=== PATIENT | female | born 1970 | race Caucasian/White ===

== ENCOUNTER 2022-08-16 11:45 | Outpatient (OUT) | payer OTHER, SELFPAY ==
--- NOTE | 2022-08-16 | ECG_ITS ---
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
--- NOTE | 2022-08-16 12:19 | CA_ITS ---
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1970 Requested By: [id number] Order Number: [id number] Reading MD: JAYDEN HUGHES Interpretive Statements Predominant rhythm is sinus with average rate of 92 bpm Tachycardia - max rate of of 159 bpm - 1 episode of PSVT w/ duration of 5 beats w/ rate of 232 bpm - longest episode of 1hr 45min 42sec with rates of 125-159 bpm Bradycardia - min rate of 48 bpm - longest episode of 18sec with rates of 51 bpm Ventricular ectopy - 11 total (<1%) - 11 PVC Patient triggered events: 28 - associated with symptoms of chest pain, palpitations, SOB - associated with rates of 112, 105 and the remaining NSR Impression: Predominant rhythm is sinus with average rate of 92 bpm Fastest rate of 159 bpm and slowest rate of 48 bpm 11 PVC 1 episode of PSVT w/ rate of 232 bpm with duration of 5 beats No blocks or pauses Electronically Signed On 10-03-2022 21:14:07 EDT by JAYDEN HUGHES
== END 2022-08-16 11:46 ==
LOC: CARD 11:49
DX: R00.2 Palpitations (principal)
CPT/HCPCS: 93005; 93242

== ENCOUNTER 2022-11-09 08:11 | Outpatient (OUT) | payer OTHER, SELFPAY ==
--- NOTE | 2022-11-09 | PCN_ITS ---
CARDIAC STRESS TEST Requesting Physician:? Darinel New NP Procedure Date:? 11/09/2022 PERFORMING PROVIDER:? Jennifer Park M.D. INDICATION:? Abnormal EKG. STRESS TEST PROTOCOL:? Treadmill myocardial perfusion scan. Exercise protocol:? Radames Resting heart rate:? 75 beats per minute. Maximum heart rate:? 150 beats per minute. Peak maximal heart rate percentage:? < > Resting blood pressure: 124/82 Maximum blood pressure:? 166/90 Exercise time:? 9 minutes 0 seconds Stage reached:? 3 METS:? 10.10 Reason for termination:? Achieved target heart rate. Heart rate recovery:? Normal. Chronotropic response index:? Normal. Functional capacity:? Good Blood pressure response:? Normal. ST changes:? Patient has 1-1.[address] depression in inferolateral leads. Chamorro treadmill score:? +1.5 CONCLUSIONS:? 1.? This is a positive treadmill stress test with 1-1.[address] depression in inferolateral leads. 2.? Chamorro treadmill score is +1.5, indicating moderate risk of angiographically significant coronary artery disease. 3.? Please refer to separately performed and interpreted myocardial perfusion imaging. 4.? Clinical correlation is recommended. [facility]
--- NOTE | 2022-11-09 | NM_ITS ---
Patient: DANN HANNA Exam Date: 11/09/2022 : 1970 Gender:F Ordering : EMILY LAUREN Admission #: [id number] Family : Non-Staff Physician Order #: [id number] CLICK HERE TO VIEW EXAM RADIOLOGY REPORT PROCEDURE: NM SEDA PERF SPECT REST STR COMPARISON: None. INDICATIONS: ABNORMAL EKG TECHNIQUE: Exam Description: Stress/Rest one day protocol gated SPECT Rest Imagin.2 mCi Tc-99m Cardiolite IV on 11/09/2022 Stress Imaging 31.0 mCi Tc-99m Cardiolite IV on 11/09/2022 Exercise Protocol: Radames Heart Rate (bpm): Rest: 75 Max: 150 PMHR: 89 Blood Pressure: Rest: 124/82 Max: 166/90 Exercise Time: Minutes: 9 Seconds: 00 Stage Reached: Stage: 3 Mets 10.10 Symptoms: Rest and peak stress ECG findings were pending and the exercise portion of the study was pending per attending physician Dr. JACOB wilson topending [facility] report. For more details please see separate cardiac stress test report. FINDINGS: QUALITY OF STUDY: Excellent. PERFUSION DEFECT: None. LOCATION: N/A SIZE: N/A. SEVERITY: N/A. TYPE: N/A. WALL MOTION: Normal. LV SIZE: Normal. 68 mL. TID / TCD: None; 1.0 LVEF: Normal. Calculated EF 64%. SUMMARY: Myocardial perfusion imaging study is NORMAL. CONCLUSION: 1. Normal nuclear medicine myocardial perfusion scan. Dictated by: Lino Farley M.D. on 11/09/2022 at 14:48 Approved by: Lino Farley M.D. on 11/09/2022 at 14:50
--- NOTE | 2022-11-09 09:15 | CA_ITS ---
Patient: DANN HANNA Exam Date: 11/09/2022 : 1970 Gender:F Ordering : EMILY LAUREN Admission #: [id number] Family : Order #: [id number] CLICK HERE TO VIEW EXAM ECHOCARDIOGRAM REPORT PROCEDURE: CA ECHO DOPPLER COMPLETE INDICATIONS: Abnormal EKG, hypertension, smoker COMPARISON: None. DESCRIPTION: COMPLETE ECHOCARDIOGRAM Real-time transthoracic echocardiography with 2D, M-mode, spectral and color flow Doppler performed. QUALITY: Technical quality was good. LEFT VENTRICLE: Normal chamber size. Borderline left ventricular hypertrophy. Normal systolic function. LV EF: Normal left ventricular ejection fraction, (>55%). DIASTOLIC: Normal diastolic function. ATRIAL SEPTUM: Visually appears intact. LEFT ATRIUM: Normal chamber size. RIGHT ATRIUM: Normal chamber size. RIGHT VENTRICLE: Normal chamber size. Normal right ventricular systolic function. TRICUSPID VALVE: Normal mobility and thickness. No stenosis with no regurgitation. Unable to assess right-sided pressures due to lack of measurable tricuspid regurgitation. MITRAL VALVE: Normal mobility and thickness. No evidence of mitral valve stenosis. There is no mitral annular calcification. Trivial mitral regurgitation. AORTIC VALVE: Normal trileaflet appearance. No visible sclerosis. Normal leaflet mobility. No evidence of aortic valve stenosis. No aortic regurgitation. AORTIC ROOT: Normal diameter and appearance. PULMONIC VALVE: Normal thickness and mobility. No stenosis. Trivial regurgitation. PERICARDIUM: No evidence of pericardial effusion. IVC: Collapses with inspirations. PLEURA: CONCLUSION: 1. Normal ventricular size and systolic function. LVEF is 60%. 2. Normal diastolic function. 3. No significant valvular dysfunction. 4. Unable to assess right-sided pressures due to lack of measurable tricuspid regurgitation. 5. No pericardial effusion. Adult Echocardiography Procedure Report Left Ventricle LVEDD (3.7 - 5.6 cm): 4.54 cm LVESD (2.2 - 4.0 cm): 2.92 cm LVIVS thickness (0.6 - 1.2 cm): 0.96 cm LVPW thickness (0.5 - 1.0 cm): 1.08 cm e': 0.12 m/s E - e': 3.52 LVOT Max Gradient: 2.20 mm[Hg] LVOT Area (cm2): 0.74 m/s Peak Velocity (LVOT): 0.74 m/s Mean Velocity (LVOT): 0.57 m/s LVOT Diameter 2.03 cm Left Atrium LA Volume Index (2D A2C): 23.78 ml/m2 Left Atrium Systolic Dimension: 3.26 cm Mitral Valve MV E to A Ratio: 1.06 Mitral Valve A-Wave Peak Velocity: 0.41 m/s Mitral Valve E-Wave Peak Velocity: 0.43 m/s Right Ventricle Aorta AO Root Diam: 3.19 cm Ascending Ao Diam: 2.77 cm Aortic Valve AoV Area (Peak Vignesh): 2.23 cm2, 2.23 cm2 Peak Velocity(Antegrade Flow): 1.08 m/s Peak Gradient(Antegrade Flow): 4.65 mm[Hg] Tricuspid Valve Pulmonic Valve Peak Velocity: 0.90 m/s Peak Gradient: 3.51 mm[Hg], 3.04 mm[Hg] Right Atrium Right Atrium Systolic Pressure: 34.46 ml, 34.46 ml Dictated by: Jarod Mortensen M.D. on 11/09/2022 at 17:58 Approved by: Jarod Mortensen M.D. on 11/09/2022 at 18:00
== END 2022-11-09 08:12 | disposition home or self-care (01) ==
LOC: NM 08:12
PROVIDERS: Visit Provider Nurse Practitioner
DX: R94.31 Abnormal electrocardiogram [ECG] [EKG] (principal); I47.1 Supraventricular tachycardia
CPT/HCPCS: 78452; 93017; 93306; A9500

== ENCOUNTER 2022-12-05 11:37 | Outpatient (OUT) | payer OTHER, SELFPAY ==
[2022-12-05 11:55] LABS: Basophils Percent Auto 0.3 % (0.2-2.0); Eosinophils Absolute Auto 0.1 10^3/uL (0.0-0.7); Eosinophils Percent Auto 0.4 % (0.9-7.0); Hematocrit 42.6 % (36.0-48.0); Hemoglobin 14.5 g/dL (12.0-16.0); Immature Granulocytes Abs Auto 0.03 10^3/uL (0.00-0.03); Immature Granulocytes Pct Auto 0.3 % (0.0-0.5); Lymphocytes Absolute Auto 3.1 10^3/uL (1.2-3.8); Lymphocytes Percent Auto 26.8 % (20.5-60.0); Mean Platelet Volume 9.3 fL (9.5-13.5); Monocytes Absolute Auto 0.6 10^3/uL (0.3-0.8); Monocytes Percent Auto 5.2 % (1.7-12.0); Neutrophils Absolute Auto 7.8 10^3/uL (1.4-6.5); Platelet Count 292 10^3/uL (150-450); Red Blood Count 4.68 10^6/uL (4.20-5.40); Red Cell Distribution Width 12.4 % (11.0-15.0); White Blood Count 11.6 10^3/uL (4.0-11.0)
[2022-12-05 12:04] LABS: Anion Gap 11.1; BUN Creatinine Ratio 18.4; Calcium 9.1 mg/dL (8.5-10.1); Carbon Dioxide 26.6 mmol/L (21.0-32.0); Chloride 103 mmol/L (98-107); Estimated GFR (African America >60 (>=60); Estimated GFR (Non-African Ame >60 (>=60); Glucose 89 mg/dL (74-106); Potassium 4.7 mmol/L (3.5-5.1); Sodium 136 mmol/L (136-145)
== END 2022-12-05 11:38 | disposition home or self-care (01) ==
LOC: LAB 11:38
PROVIDERS: Visit Provider Nurse Practitioner
DX: R94.39 Abnormal result of other cardiovascular function study (principal)
CPT/HCPCS: 36415; 80048; 85025

== ENCOUNTER 2023-05-22 09:21 | Outpatient (OUT) | payer OTHER, SELFPAY ==
--- NOTE | 2023-05-22 09:23 | MM_ITS ---
Patient Name: DANN HANNA MR#: [id number] : 1970 Exam Date: 05/22/2023 Ordering Doctor: Rola Woodward RADIOLOGY REPORT PROCEDURE: MM TOMOSYNTHESIS SCREENING BI COMPARISON: MG STEREO LOC GUIDE BREAST RT, 08/03/2010. MAMMO RT DX, 07/17/2010. MAMMO RT DX, 07/17/2010. MAMMO RT DX, 06/30/2010. INDICATIONS: screening Calculator Name NCI Breast Cancer Risk Assessment Tool 5 Year Breast Cancer Risk 1.30% Lifetime Breast Cancer Risk 10.10% Personal Breast Cancer No Personal Ovarian Cancer No Treatments None Family Cancers None LOCATION: [facility] BREAST COMPOSITION: Scattered areas fibroglandular density. FINDINGS: DIAGNOSTIC CATEGORY 2--BENIGN FINDING: RIGHT BREAST: No significant suspicious finding. Postsurgical scarring posterior upper-outer quadrant. LEFT BREAST: No significant suspicious finding. Scattered benign-appearing lymph nodes are present. RECOMMENDATIONS: ROUTINE MAMMOGRAM AND CLINICAL EVALUATION IN 12 MONTHS. PLEASE NOTE: A NORMAL MAMMOGRAM DOES NOT EXCLUDE THE POSSIBILITY OF BREAST CANCER. A CLINICALLY SUSPICIOUS PALPABLE LUMP SHOULD BE BIOPSIED. Dictated by: Lino Farley M.D. on 05/24/2023 at 08:26 Approved by: Lino Farley M.D. on 05/24/2023 at 08:33
== END 2023-05-22 09:22 | disposition home or self-care (01) ==
LOC: MAMMO 09:21
PROVIDERS: Visit Provider Nurse Practitioner
DX: Z12.31 Encounter for screening mammogram for malignant neoplasm of breast (principal)
CPT/HCPCS: 77063; 77067

== ENCOUNTER 2023-08-27 07:56 | Outpatient (OUT) | payer OTHER, SELFPAY ==
--- NOTE | 2023-08-27 07:59 | US_ITS ---
The [address] [address] Patient Name: DANN HANNA MRN: [id number] date: 1970 Sex: F Assigned Patient Location: US Current Patient Location: Accession/Order Number: [id number] Exam Date: 08/27/2023 08:12 Report Date: 08/27/2023 09:29 At the request of: KELECHI GARNER Procedure: US abdomen complete EXAMINATION: US abdomen complete HISTORY: Upper abdominal pain R10.10 COMPARISON: No relevant comparison available. FINDINGS: The liver is normal in size, contour and echotexture is 3 14 cm in length. Multiple areas of anechoic echogenicity, simple cyst. Hepatopedal flow in the main portal vein with a velocity of 31 cm/s. The gallbladder is normal in size. The wall measures 2.5 mm. Negative sonographic Zavala sign. Multiple echogenic foci, cholelithiasis. The common bile duct measures 2.6 mm, normal The visualized pancreas is normal The right kidney is normal measuring 9.9 x 4.9 x 4.8 cm Left kidney is normal measuring 9.8 x 4.6 x 4.3 cm The visualized aorta and IVC are normal The spleen is normal US/US abdomen complete IMPRESSION: Simple liver cysts Cholelithiasis without evidence of acute cholecystitis Electronically authenticated by: GABE GARNER Date: 08/27/2023 09:29
== END 2023-08-27 07:57 | disposition home or self-care (01) ==
LOC: US 07:57
PROVIDERS: Visit Provider Nurse Practitioner
DX: R10.10 Upper abdominal pain, unspecified (principal); K76.89 Other specified diseases of liver; K80.20 Calculus of gallbladder without cholecystitis without obstruction
CPT/HCPCS: 76700

== ENCOUNTER 2024-12-04 01:13 | Emergency (ER) | payer OTHER, SELFPAY ==
[2024-12-04] VITALS (48 sets, daily range): BP systolic 112–134; BP diastolic 68–87; PULSE 75–95; TEMP 36.9; O2SAT 94–99; BMI 25.4
--- OUTSIDE RECORDS SUMMARY | 2024-12-04 01:25 | XMS_ITS | CCD ---
Author Organization [facility] Care Team Providers Care Public Space Attendant Name Role Phone KARON GARRETT Unavailable Unavailable Arian Garcia Unavailable FLOYD PRITCHETT Attending Unavailable EMILY LAUREN Attending Unavailable ELTAALVINA, EHAB Admitting Unavailable ANA BOSSAB Attending Unavailable EMILY LAUREN Referring Unavailable ELTAHAWY, EHAB Referring Unavailable KELECHI GARNER Primary Care Physician [phone] KELECHI GARNER Primary Care Unavailable Lennox Aparicio Attending Unavaila ble Allergies Allergy Classification Reported Allergen(s) Allergy Type Date of Onset Reaction(s) Facility (5 sources) Penicillins; Translations: [PENICILLINS] Propensity to adverse reactions to drug (disorder) 06-27-19 05 Unknown (qualifier value) [facility] Repository (3 sources) Sulfonamides (Antibiotic); Translations: [SULFA (SULFONAMIDE ANTIBIOTICS)] Propensity to adverse reactions to drug (disorder) 06-27-19 05 [facility] Repository (2 sources) Penicillins (Antibiotic) Propensity to adverse reactions Unknown [facility] Other (2 sources) Sulfamethoxazole Drug Allergy Unknown [facility] Other (2 sources) Sulfonamides (Antibiotic); Translations: [sulfa drugs] Drug allergy Unknown (qualifier value) [facility] Medications Completed/Discontinued Medications Medication Drug Class(es) Dates Sig (Normalized) Sig (Original) busPIRone hydrochloride 10 mg oral tablet (1 source) Start: 09-25-2023 busPIRone 10 mg Tab 60 EA, 0 Refill(s), take 1 tablet by mouth twice a day, Refills(s) 0 Start Date: 09/25/23 Status: Ordered colestipol hydrochloride 1000 mg oral tablet (3 sources) Bile Acid Sequestrant Start: 09-25-2023 colestipol 1 g Tab 180 EA, 0 Refill(s), take 3 tablets orally twice a day, Refills(s) 0 Start Date: 09/25/23 Status: Ordered Start: 09-29-2019 take 3 tablets by mo [facility] every twelve hours Colestipol HCl 1 GM 3 tablets Orally bid for 30 day(s) Sep, Active Start: 09-29-2019 take 3 tablets by mo ut every twelve hours Colestipol HCl 1 GM 3 tablets Orally bid for 30 day(s) Sep, Active ibuprofen 800 mg oral tablet (1 source) Nonsteroidal Anti-inflammatory Drug Start: 09-25-2023 ibuprofen 800 mg Tab 90 EA, 0 Refill(s), take 1 tablet orally every 8 hours with food NEEDED FOR PAIN, Refills(s) 0 Start Date: 09/25/23 Status: Ordered 24 hr nicotine 0.875 mg/hr transdermal system (1 source) Cholinergic Nicotinic Agonist Start: 09-25-2023 nicotine 21 mg/24 hr Transderm ER Film Refill(s) 0, 28 EA, 0 Refill(s), apply 1 patch to CLEAN, DRY, AND INTACT SKIN once daily REMOVE ev... (REFER TO PRESCRIPTION NOTES). Start Date: 09/25/23 Status: Ordered sucralfate 1000 mg oral tablet (3 sources) Aluminum Complex Start: 09-25-2023 take 10 mL by mouth four times daily sucralfate 1 g Tab 56 EA, 0 Refill(s), TAKE 1 TABLET BY MOUTH FOUR TIMES DAILY EVERY DAY ON AN EMPTY STOMACH 1 HOUR BEFORE MEALS AND AT BEDTIME MIX ONE TABLET WITH 10ML OF WATER, Refills(s) 0 Start Date: 09/25/23 Status: Ordered Start: 05-15-2021 take 1 tablet by caterina th every twelve hours Sucralfate 1 GM 1 TABLET Orally Twice a day for 30 day(s) May, Active Start: 05-15-2021 take 1 tablet by caterina th every twelve hours Sucralfate 1 GM 1 TABLET Orally Twice a day for 30 day(s) May, Active Problems Active Problems Problem Classification Problem Date Documented Date Episodic/Chronic Abdominal pain (2 sources) Epigastric pain; Translations: [Epigastric pain] Onset: 4 Episodic Anxiety disorders (1 source) Anxiety 09-25-2023 Chronic Cardiac dysrhythmias (2 sources) Supraventricular tachycardia; Translations: [Supraventricular tachycardia] Onset: 3 Chronic Diseases of mouth; excluding dental (2 sources) Sialoadenitis; Translations: [Sialoadenitis, unspecified] Episodic Esophageal disorders (3 sources) Gastroesophageal reflux disease; Translations: [Gastro-esophageal reflux disease without esophagitis] 09-25-2023 Chronic Mood disorders (3 sources) Bipolar disorder; Translations: [Bipolar disorder, unspecified] Onset: 4 Chronic Noninfectious gastroenteritis (2 sources) Noninfectious enteritis; Translations: [Noninfective gastroenteritis and colitis, unspecified] Onset: 4 Episodic Nonmalignant breast conditions (1 source) Mastodynia; Translations: [Mastodynia] Onset: 8 Episodic Other acquired deformities (2 sources) Mallet finger; Translations: [Mallet finger of right finger(s)] Episodic Other screening for suspected conditions (not mental disorders or infectious disease) (4 sources) Abnormal result of other cardiovascular function study; Translations: [Abnormal electrocardiogram [ECG] [EKG]] Onset: 3 Episodic Other upper respiratory infections (2 sources) Inflammatory disorder of upper respiratory tract; Translations: [Chronic sinusitis, unspecified] Chronic Regional enteritis and ulcerative colitis (4 sources) Crohn's disease; Translations: [Crohn's disease, unspecified, with unspecified complications] Onset: 4 Chronic Substance-related disorders (1 source) Smoker 09-25-2023 Chronic Comment on above: Added secondary to d ocumentation in Social History. Unclassified (1 source) Supraventricular tachycardia, unspecified; Translations: [Supraventricular tachycardia, unspecified] Onset: 3 Past or Other Problems Problem Classification Problem Date Documented Da te Episodic/Chronic Other gastrointestinal disorders (1 source) Diarrhea Onset: 5 09-25-2023 Episodic Unclassified (1 source) Supraventricular tachycardia, unspecified; Translations: [Supraventricular tachycardia, unspecified] Onset: 3 Results Test Name Value Interpretation Reference Range Facility Ambulatory Visit Summaryon 0 09-30-2023 Ambulatory Visit Summary Ambulatory Visit Summary DENISE REID :1970 Visit Date:09/30/2023 Ambulatory Visit Instructions Your Diagnosis Epigastric pain Crohn's disease Colitis Bipolar disorder Your Care Team Attending Physician - Markus SEWELL, Lennox Sarah Primary Care Physician - KELECHI GARNER This Is Your Medications List Contact prescribing physician if questions or concerns busPIRone (busPIRone 10 mg Tab) colestipol (colestipol 1 g Tab) ibuprofen (ibuprofen 800 mg Tab) nicotine (nicotine 21 mg/24 hr Transderm ER Film) sucralfate (sucralfate 1 g Tab) Procedures Performed Colonoscopy, EGD - esophagogastroduodenoscop y. Discharge Vitals Heart Rate (Peripheral) 63 Respiratory Rate 16 Blood Pressure 113/75 Height 176 cm Height 69 in Weight 72.5 kg Weight 159.5 lb BMI 23.41 Medications What When Instructions Unchanged busPIRone (busPIRone 10 mg Tab) 60 EA, 0 Refill(s), take 1 tablet by mouth twice a day Contact prescribing physician if questions or concerns Unchanged colestipol (colestipol 1 g Tab) 180 EA, 0 Refill(s), take 3 tablets orally twice a day Contact prescribing physician if questions or concerns Unchanged ibuprofen (ibuprofen 800 mg Tab) 90 EA, 0 Refill(s), take 1 tablet orally every 8 hours with food NEEDED FOR PAIN Contact prescribing physician if questions or concerns Unchanged nicotine (nicotine 21 mg/ 24 hr Transderm ER Film) 28 EA, 0 Refill(s), apply 1 patch to CLEAN, DRY, AND INTACT SKIN once daily REMOVE ev... (REFER TO PRESCRIPTION NOTES). Contact prescribing physician if questions or concerns Unchanged sucralfate (sucralfate 1 g Tab) 56 EA, 0 Refill(s), TAKE 1 TABLET BY MOUTH FOUR TIMES DAILY EVERY DAY ON AN EMPTY STOMACH 1 HOUR BEFORE MEALS AND AT BEDTIME MIX ONE TABLET WITH 10ML OF WATER Contact prescribing physician if questions or concerns Allergies penicillins (Unknown) sulfa drugs (Unknown) Problems Ongoing - Any problem that you are currently receiving treatment for. Anxiety Bipolar disorder Chronic GERD Colitis Crohn's disease Depression Diarrhea Epigastric pain Smoker Patient Survey You may receive a survey via text or e-mail asking about your office visit. Please share your experience with us by completing your survey. We appreciate your feedback and thank you for choosing us for your care. Aretha [facility] Gastroenterology Office/Clin ic Noteon 09-30-2023 Gastroenterology Office/Clinic Note Gastroenterology Office/Clinic Note Chief Complaint Abdominal pain and pressure when eating. Shooting pain RLQ. HPI Staff Patient is a 53 year old female who was referred by [facility] for epigastric pain, IBS and hx of Crohn's disease. Pain started 08/2023, sharp/shooting, came in waves, mainly when up and moving and is worse after meals. PCP advised to take Omeprazole and Carafate but Omeprazole made sx worse. Hx IBS/Crohn's - takes Colestipol and Carafate for this. Hx hemicolectomy & appendectomy Initial consult 12/06/2008 w/Dr. Carbajal: In 2005 patient was diagnosed with Crohn's disease of the terminal ileum and at that time she underwent a right hemicolectomy. This was done in [facility]. At that time she was referred to the [facility] and she has been following with them since. She was tried on 6-MP and apparently she developed a side effect. She refused to take Remicade because of the 6-MP side effects and was treated with Questran for her diarrhea. PLAN: She was asked to stop the Questran and start samples of Pentasa 4g daily Capsule endoscopy 03/11/2009: First gastric image was at 24 seconds. First duodenal image was at 8 minutes and 42 seconds. First cecal image was at one hour 10 minutes and 34 seconds. At 17 minutes and 5 seconds there was an abnormal-looking area that was questionable for a venous dillard. At one hour 9 minutes and 49 seconds there was a suspicious area for ulcer but this is most likely an artifact. There was rapid gastric emptying as well as rapid transit through the small intestine. SUMMARY & RECOMMENDATIONS: There was rapid gastric emptying as well as rapid transit through the small intestine. Otherwise no obvious evidence of small intestinal Crohn's disease. Patient will follow in the office and that will give her a trial of Bentyl. EGD/Colon 01/04/2017 w/Dr. 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 Stomach, antrum, biopsy: -Reactive gastropathy B. Esophagus, biopsy: - Squamous mucosa with focal parakeratosis. - No eosinophilia or intestinal metaplasia identified. C. Colon, near anastomosis, biopsy: - Colonic mucosa with no significant pathologic findings. D. Neoterminal ileum, biopsy: - Chronic and mild active ileitis. - No granuloma or dysplasia identified. E. Rectum, biopsy: - Colonic mucosa with no significant pathologic findings. US abd 08/27/23 @ [facility]: IMPRESSION: Simple liver cysts Cholelithiasis without evidence of acute cholecystitis. Labs 12/05/22 @ [place]: WBC 11.6 (H) Mean Platelet Volume 9.3 (L) Labs 06/15/21 @ [facility]: Sed rate: 20 CRP: 0.5 TSH 1.55 Celiac panel: negative History of Present Illness Doing well since the surgery, on colestipol which controls her bowel movements, no extraluminal manifestations Review of Systems PHQ Score Initial Depression Screen Score: 0 SCORE Physical Exam Vitals & Measurements HR: 63(Peripheral) RR: 16 BP: 113/75 HT: 69 in HT: 176 cm WT: 72.5 kg WT: 159.5 lb BMI: 23.41 Assessment/Plan 1. Epigastric pain (R10.13: Epigastric pain) None currently 2. Crohn's disease (K50.90: Crohn's disease, unspecified, without complications) Diagnosed 2006status post right hemicolectomy, doing well on colestipol, she was on 6-mercaptopurine for short time at [facility] Not sure when she stopped it Overall she is in a clinical remission, we discussed restaging her disease with imaging and EGD and colonoscopy, she would like to push that for now in few months Continue colestipol 3 g twice a day before meals 3. Colitis (K52.9: Noninfective gastroenteritis and colitis, unspecified) 4. Bipolar disorder (F31.9: Bipolar disorder, unspecified) Follow-up No qualifying data available Problem List/Past Medical History Ongoing Anxiety Bipolar disorder Chronic GERD Colitis Crohn's disease Depression Diarrhea Epigastric pain Smoker Historical No qualifying data Procedure/Surgical History Colonoscopy, EGD - esophagogastroduodenoscop y. Medications busPIRone 10 mg Tab colestipol 1 g Tab ibuprofen 800 mg Tab nicotine 21 mg/24 hr Transderm ER Film sucralfate 1 g Tab Allergies penicillins (Unknown) sulfa drugs (Unknown) Social History Alcohol Current, 3-5 times per week, 09/25/2023 Tobacco 10 or more cigarettes (1/2 pack or more)/day in last 30 days Tobacco Use:. Never Smokeless Tobacco Use:. Cigarettes, Ready to change: Yes. Yes, 09/30/2023 Family History Alcoholism: Sister and Brother.Negative: Father. Diabetes mellitus: Negative: Father. Heart disease: Negative: Father. Skin cancer: Mother. Stroke: Father. Normal [facility] Comment on above: Result Comment: Elec tronically Signed By: Markus SEWELL, Lennox Sarah\.br\Date and Time Signed: 09/30/23 11:01 EDT Office Visiton 12-25-2022 Follow-up visit [id number] Denise Reid 1970 F Date Provider Department Center 12/25/2022 FLOYD RYDER TAMIKA Meeks [facility] Family History Problem Relation Age of Onset Heart attack Father Stroke Father Family Status - Relation Status Age at Father Level of Service:45532 [place] OFFICE/OUTPATIENT NEW MODERATE MDM 45-59 MINUTES Normal [facility] Vidya 12-10-2022 ANES ----- ----- Attestation signed by Lowell Boss MD at 12/10/2022 10:02 AM Lowell Boss MD, MPH, FACC, [facility], [facility] Interventional Cardiology Pager Email: [email or web address] ----- Patient: Denise Reid Procedure Information Date/Time: 12/10/22929 Procedure: Coronary angiography - any interventionalist is ok Location: [facility] 3 / [facility] VASCULAR LAB (Cath) Providers: Lowell Boss MD Clinical information reviewed: Allergies Meds OB Status Physical Exam Airway Mallampati: II Cardiovascular Rhythm: regular Rate: normal (-) murmur Dental Pulmonary Abdominal Anesthesia Plan ASA 2 other (Conscious sedation.) Additional Equipment Requests Normal [facility] HPon 12-10-2022 ----- ----- Attestation signed by Lowell Boss MD at 12/10/2022 10:02 AM Lowell Boss MD, MPH, [facility], [facility], [facility] Interventional Cardiology Pager Email: [email or web address] ----- History Of Present Illness Denise Reid is a 52 y.o. female presenting For coronary angiogram. Patient reported chest pain at home. Reported her pain is not related to exertion. She also reported palpitation. Patient had stress test in [place] with ST depression but normal myocardial perfusion. Patient has history of chron's disease. she had holter monitor for 3 days per pcp which was a PSVT up to 220 bpm. Patient is a smoker, smokes pack a day. ECG 08/16/22 shows SR with moderate twave abnormality and ST deviation, consider lateral ischemia Past Medical History She has no past medical history on file. Surgical History She has a past surgical history that includes Back surgery; Knee surgery; Appendectomy; and Laparoscopic left colon resection. Social History She reports that she has been smoking cigarettes. She has never used smokeless tobacco. She reports current alcohol use. She reports that she does not use drugs. Allergies Penicillins and Sulfa (sulfonamide antibiotics) Medications Medications Prior to Admission Medication Sig Dispense Refill Last Dose busPIRone (Buspar) 10 mg tablet Take 10 mg by mouth in the morning and at bedtime. 12/09/2022 colestipol (Colestid) 1 gram tablet Take 3 g by mouth in the morning and at bedtime. 12/09/2022 Review of Systems Constitutional: Negative for activity change. Respiratory: Positive for chest tightness and shortness of breath. Cardiovascular: Positive for chest pain and palpitations. Negative for leg swelling. Gastrointestinal: Negative for abdominal distention. All other systems reviewed and are negative. Physical Exam Cardiovascular: Rate and Rhythm: Normal rate and regular rhythm. Pulses: Normal pulses. Heart sounds: Normal heart sounds. No murmur heard. No friction rub. Pulmonary: Effort: Pulmonary effort is normal. No respiratory distress. Breath sounds: Normal breath sounds. No stridor. Abdominal: General: Abdomen is flat. Palpations: Abdomen is soft. Neurological: Mental Status: She is alert. Last Recorded Vitals There were no vitals taken for this visit. Relevant Results ST depression on treadmill stress Normal MP She does still have exertional chest pain with shortness of breath Given no prior testing and abnormal stress ecg will proced with coronary angiogram Patient understands and is agreeable Assessment/Plan Principal Problem: Abnormal stress ECG Assessment: Chest pain. ST depression on Exercise stress test. Smoker. Palpitation. Dyspnea on exertion. Plan: We will proceed with coronary angiogram. Further management will depend on results. Normal [facility] NURSNOTEmacrina 12-10-2022 NURSNOTE RN educated pt on d/ c instructions. RN encouraged pt to voice any questions or concerns. Pt verbalizes no questions or concerns at this time. Normal [facility] Letter (Out)on 11-30-2022 Letter (Out) [id number] Denise Reid 1970 F Date Provider Department Center 11/30/2022 None-None [facility] [place] [facility] C Family History Problem Relation Age of Onset Heart attack Father Stroke Father Family Status - Relation Status Age at Father Normal [facility] Letter (Out)on 11-26-2022 Letter (Out) [id number] Denise Reid 1970 Provider Department [place] 11/26/2022 None-None [facility] [place] [facility] Family History Problem Relation Age of Onset Heart attack Father Stroke Father Family Status - Relation Status Age at Father Normal [facility] Orders Onlyon 11-22-2022 Orders Only [id number] Denise Reid 1970 Provider Department [place] 11/22/[address] Family History Problem Relation Age of Onset Heart attack Father Stroke Father Family Status - Relation Status Age at Father Normal [facility] Office Visiton 10-17-2022 Follow-up visit [id number] Denise Reid 1970 Provider Department [place] 10/17/2022 EMILY CROCKETT Family History Problem Relation Age of Onset Heart attack Father Stroke Father Family Status - Relation Status Age at Father Level of Service:41098 [place] OFFICE/OUTPATIENT NEW MODERATE MDM 45-59 MINUTES Reason for Visit and Comments: New Patient [632] - Patient is here with concerns due to SVT recent EKG completed Normal [facility] C-Reactive Proteinon 022 C-Reactive Protein 0.5 mg/dL Normal 0.0-1.0 [facility] Comment on above: Order Comment: Reaso n for Exam Crohns disease with complication, unspecified gastrointestin Performed By: #### C RP, CMP, TSH3, CBC, ESR #### [facility] [address] [place] [address] [place] #### CELIAC #### [facility] , Celiacon 06-15-2021 Deamidated Gliadin Abs, IgA 4 Normal 0-19 [facility] Comment on above: Order Comment: Reaso n for Exam Crohns disease with complication, unspecified gastrointestin Result Comment: Nega tive 0 - 19 Weak Positive 20 - 30 Moderate to Strong Positive >30 Performed By: #### C RP, CMP, TSH3, CBC, ESR #### [facility] [address] [place] [address] #### CELIAC #### [facility] , Deamidated Gliadin Abs, IgG 2 Normal 0-19 [facility] Comment on above: Order Comment: Reaso n for Exam Crohns disease with complication, unspecified gastrointestin Result Comment: Nega tive 0 - 19 Weak Positive 20 - 30 Moderate to Strong Positive >30 Performed By: #### C RP, CMP, TSH3, CBC, ESR #### [facility] [address] [place] [address] #### CELIAC #### [facility] , Endomysial Antibody IgA Negative Normal Negative [facility] Comment on above: Order Comment: Reaso n for Exam Crohns disease with complication, unspecified gastrointestin Performed By: #### C RP, CMP, TSH3, CBC, ESR #### [facility] [address] [place] [address] #### CELIAC #### [facility] , Immunoglobulin A, Qn, Serum 146 mg/dL Normal 87-352 [facility] Comment on above: Order Comment: Reaso n for Exam Crohns disease with complication, unspecified gastrointestin Result Comment: Perf ormed at: - [facility] [address] [id number] Reclamation Supervisor: Jese Richard PhD, Phone: [phone] PERFORMED BY: [place] [address] PATHOLOGIST BUTTON SEWING MACHINE OPERATOR PADILLA PICKENS M.D. Performed By: #### C RP, CMP, TSH3, CBC, ESR #### [facility] [address] [place] [address] #### CELIAC #### [facility] , T-Transglutaminase (tTG) IgA <2 Normal 0-3 [facility] Comment on above: Order Comment: Reaso n for Exam Crohns disease with complication, unspecified gastrointestin Result Comment: Nega tive 0 - 3 Weak Positive 4 - 10 Positive >10 Tissue Transglutaminase (tTG) has been identified as the endomysial antigen. Studies have demonstr- ated that endomysial IgA antibodies have over 99% specificity for gluten sensitive enteropathy. Performed By: #### C RP, CMP, TSH3, CBC, ESR #### [place] [address] [place] #### CELIAC #### [facility] , T-Transglutaminase (tTG) IgG <2 Normal 0-5 [facility] Comment on above: Order Comment: Reaso n for Exam Crohns disease with complication, unspecified gastrointestin Result Comment: Nega tive 0 - 5 Weak Positive 6 - 9 Positive >9 Performed By: #### C RP, CMP, TSH3, CBC, ESR #### [place] [address] [place] #### CELIAC #### [facility] , Complete Blood Count Auto Di ffon 06-15-2021 Basophils (Bld) [#/Vol] 0.0 10*3/uL Normal 0.0-0.2 [facility] Comment on above: Order Comment: Reaso n for Exam Crohns disease with complication, unspecified gastrointestin Performed By: #### C RP, CMP, TSH3, CBC, ESR #### [place] [address] [place] #### CELIAC #### [facility] , Basophils/100 WBC (Bld) 0.3 % Normal . [facility] Comment on above: Order Comment: Reaso n for Exam Crohns disease with complication, unspecified gastrointestin Performed By: #### C RP, CMP, TSH3, CBC, ESR #### [place] [address] [place] #### CELIAC #### [facility] , Eosinophils (Bld) [#/Vol] 0.0 10*3/uL Normal 0.0-0.45 [facility] Comment on above: Order Comment: Reaso n for Exam Crohns disease with complication, unspecified gastrointestin Performed By: #### C RP, CMP, TSH3, CBC, ESR #### [address] #### CELIAC #### [facility] , Eosinophils/100 WBC (Bld) 0.3 % Normal . [facility] Comment on above: Order Comment: Reaso n for Exam Crohns disease with complication, unspecified gastrointestin Performed By: #### C RP, CMP, TSH3, CBC, ESR #### [address] #### CELIAC #### [facility] , Erythrocyte distribution width (RBC) [Ratio] 13.2 % Normal 11.9-15.3 [facility] Comment on above: Order Comment: Reaso n for Exam Crohns disease with complication, unspecified gastrointestin Performed By: #### C RP, CMP, TSH3, CBC, ESR #### [address] #### CELIAC #### [facility] , Hematocrit (Bld) [Volume fraction] 42.1 % Normal 34.0-46.4 [facility] Comment on above: Order Comment: Reaso n for Exam Crohns disease with complication, unspecified gastrointestin Performed By: #### C RP, CMP, TSH3, CBC, ESR #### [place] [address] [place] #### CELIAC #### [facility] , Hemoglobin (Bld) [Mass/Vol] 14.4 g/dL Normal 11.8-15.4 [facility] Comment on above: Order Comment: Reaso n for Exam Crohns disease with complication, unspecified gastrointestin Performed By: #### C RP, CMP, TSH3, CBC, ESR #### [place] [id number] [place] #### CELIAC #### [facility] , Lymphocytes (Bld) [#/Vol] 1.8 10*3/uL Normal 1.00-4.8 [facility] Comment on above: Order Comment: Reaso n for Exam Crohns disease with complication, unspecified gastrointestin Performed By: #### C RP, CMP, TSH3, CBC, ESR #### [facility] [address] [place] [address] [place] #### CELIAC #### [facility] , Lymphocytes/100 WBC (Bld) 22.2 % Normal . [facility] Comment on above: Order Comment: Reaso n for Exam Crohns disease with complication, unspecified gastrointestin Performed By: #### C RP, CMP, TSH3, CBC, ESR #### [facility] [address] [place] [address] #### CELIAC #### [facility] , MCH (RBC) [Entitic mass] 30.9 pg Normal 24.7-34.3 [facility] Comment on above: Order Comment: Reaso n for Exam Crohns disease with complication, unspecified gastrointestin Performed By: #### C RP, CMP, TSH3, CBC, ESR #### [facility] [address] [place] [address] #### CELIAC #### [facility] , MCV (RBC) [Entitic vol] 90.1 fL Normal 80-100 [facility] Comment on above: Order Comment: Reaso n for Exam Crohns disease with complication, unspecified gastrointestin Performed By: #### C RP, CMP, TSH3, CBC, ESR #### [facility] [address] [place] [address] [place] #### CELIAC #### [facility] , Mean Corpuscular HGB Conc 34.3 g/dL Normal 32.0-35.0 [facility] Comment on above: Order Comment: Reaso n for Exam Crohns disease with complication, unspecified gastrointestin Performed By: #### C RP, CMP, TSH3, CBC, ESR #### [place] [address] [place] #### CELIAC #### [facility] , Monocytes (Bld) [#/Vol] 0.3 10*3/uL Normal 0.0-0.8 [facility] Comment on above: Order Comment: Reaso n for Exam Crohns disease with complication, unspecified gastrointestin Performed By: #### C RP, CMP, TSH3, CBC, ESR #### [address] #### CELIAC #### [facility] , Monocytes/100 WBC (Bld) 4.1 % Normal . [facility] Comment on above: Order Comment: Reaso n for Exam Crohns disease with complication, unspecified gastrointestin Performed By: #### C RP, CMP, TSH3, CBC, ESR #### [address] #### CELIAC #### [facility] , Neutrophils (Bld) [#/Vol] 5.9 10*3/uL Normal 1.8-7.7 [facility] Comment on above: Order Comment: Reaso n for Exam Crohns disease with complication, unspecified gastrointestin Performed By: #### C RP, CMP, TSH3, CBC, ESR #### [place] [address] [place] #### CELIAC #### [facility] , Neutrophils/100 WBC (Bld) 73.1 % Normal . [facility] Comment on above: Order Comment: Reaso n for Exam Crohns disease with complication, unspecified gastrointestin Performed By: #### C RP, CMP, TSH3, CBC, ESR #### [place] [address] [place] #### CELIAC #### [facility] , Nucleated RBC/100 WBC (Bld) [Ratio] 0.0 % Normal 0-0.5 [facility] Comment on above: Order Comment: Reaso n for Exam Crohns disease with complication, unspecified gastrointestin Performed By: #### C RP, CMP, TSH3, CBC, ESR #### [facility] [address] [place] [address] #### CELIAC #### [facility] , Platelet mean volume (Bld) [Entitic vol] 8.7 fL Normal 6.3-10.7 [facility] Comment on above: Order Comment: Reaso n for Exam Crohns disease with complication, unspecified gastrointestin Performed By: #### C RP, CMP, TSH3, CBC, ESR #### [facility] [address] [place] [address] #### CELIAC #### [facility] , Platelets (Bld) [#/Vol] 227 10*3/uL Normal 150-450 [facility] Comment on above: Order Comment: Reaso n for Exam Crohns disease with complication, unspecified gastrointestin Performed By: #### C RP, CMP, TSH3, CBC, ESR #### [facility] [address] [place] [address] #### CELIAC #### [facility] , RBC (Bld) [#/Vol] 4.67 10*6/uL Normal 3.60-5.00 [facility] Comment on above: Order Comment: Reaso n for Exam Crohns disease with complication, unspecified gastrointestin Performed By: #### C RP, CMP, TSH3, CBC, ESR #### [facility] [address] [place] [address] [place] #### CELIAC #### [facility] , WBC (Bld) [#/Vol] 8.0 10*3/uL Normal 4.5-11.0 [facility] Comment on above: Order Comment: Reaso n for Exam Crohns disease with complication, unspecified gastrointestin Performed By: #### C RP, CMP, TSH3, CBC, ESR #### [facility] [address] [place] [address] [place] #### CELIAC #### [facility] , Comprehensive Metabolic Pane bryan 06-15-2021 Albumin [Mass/Vol] 3.7 g/dL Normal 3.2-5.5 [facility] Comment on above: Order Comment: Reaso n for Exam Crohns disease with complication, unspecified gastrointestin Performed By: #### C RP, CMP, TSH3, CBC, ESR #### [address] #### CELIAC #### [facility] , Albumin/Globulin [Mass ratio] 1.3 {ratio} Normal [facility] Comment on above: Order Comment: Reaso n for Exam Crohns disease with complication, unspecified gastrointestin Performed By: #### C RP, CMP, TSH3, CBC, ESR #### [facility] [address] [place] [address] #### CELIAC #### [facility] , ALP [Catalytic activity/Vol] 81 U/L Normal 32-92 [facility] Comment on above: Order Comment: Reaso n for Exam Crohns disease with complication, unspecified gastrointestin Performed By: #### C RP, CMP, TSH3, CBC, ESR #### [facility] [address] [place] [address] [place] #### CELIAC #### [facility] , ALT [Catalytic activity/Vol] 15 U/L Normal 10-60 [facility] Comment on above: Order Comment: Reaso n for Exam Crohns disease with complication, unspecified gastrointestin Performed By: #### C RP, CMP, TSH3, CBC, ESR #### [facility] [address] [place] [address] [place] #### CELIAC #### [facility] , AST [Catalytic activity/Vol] 16 U/L Normal 10-42 [facility] Comment on above: Order Comment: Reaso n for Exam Crohns disease with complication, unspecified gastrointestin Performed By: #### C RP, CMP, TSH3, CBC, ESR #### [facility] [address] [place] [address] [place] #### CELIAC #### [facility] , Bilirubin [Mass/Vol] 0.6 mg/dL Normal 0.3-1.2 [facility] Comment on above: Order Comment: Reaso n for Exam Crohns disease with complication, unspecified gastrointestin Performed By: #### C RP, CMP, TSH3, CBC, ESR #### [facility] [address] [place] [address] #### CELIAC #### [facility] , Calcium [Mass/Vol] 9.3 mg/dL Normal 8.2-10.2 [facility] Comment on above: Order Comment: Reaso n for Exam Crohns disease with complication, unspecified gastrointestin Performed By: #### C RP, CMP, TSH3, CBC, ESR #### [facility] [address] [place] [address] [place] #### CELIAC #### [facility] , Chloride [Moles/Vol] 106 mmol/L Normal 95-114 [facility] Comment on above: Order Comment: Reaso n for Exam Crohns disease with complication, unspecified gastrointestin Performed By: #### C RP, CMP, TSH3, CBC, ESR #### [facility] [address] [place] [address] [place] #### CELIAC #### [facility] , CO2 [Moles/Vol] 21.9 mmol/L Low 22.0-30.0 [facility] Comment on above: Order Comment: Reaso n for Exam Crohns disease with complication, unspecified gastrointestin Performed By: #### C RP, CMP, TSH3, CBC, ESR #### [facility] [address] [place] [address] [place] #### CELIAC #### [facility] , Creatinine [Mass/Vol] 0.75 mg/dL Normal 0.44-1.03 [facility] Comment on above: Order Comment: Reaso n for Exam Crohns disease with complication, unspecified gastrointestin Performed By: #### C RP, CMP, TSH3, CBC, ESR #### [facility] [address] [place] [address] [place] #### CELIAC #### [facility] , Estimated GFR ( Prema > 60 [facility] Comment on above: Order Comment: Reaso n for Exam Crohns disease with complication, unspecified gastrointestin Result Comment: GFR estimated reference range: According to KDOQI guidelines, <60 ml/min/1.73m2 is sufficient to diagnose a patient with chronic kidney disease. Performed By: #### C RP, CMP, TSH3, CBC, ESR #### [facility] [address] [place] [address] [place] #### CELIAC #### [facility] , Estimated GFR (Non- Am > 60 [facility] Comment on above: Order Comment: Reaso n for Exam Crohns disease with complication, unspecified gastrointestin Performed By: #### C RP, CMP, TSH3, CBC, ESR #### [facility] [address] [place] [address] [place] #### CELIAC #### [facility] , Globulin (S) [Mass/Vol] 2.9 g/dL [facility] Comment on above: Order Comment: Reaso n for Exam Crohns disease with complication, unspecified gastrointestin Performed By: #### C RP, CMP, TSH3, CBC, ESR #### [facility] [address] [place] [address] [place] #### CELIAC #### [facility] , Glucose [Mass/Vol] 84 mg/dL Normal 70-100 [facility] Comment on above: Order Comment: Reaso n for Exam Crohns disease with complication, unspecified gastrointestin Result Comment: [place] om Glucose Reference Range is dependent on time and content of last meal. Glucose of more than 200 mg/dL in a nonstressed, ambulatory subject supports the diagnosis of Diabetes Mellitus. ADA recommended reference range Performed By: #### C RP, CMP, TSH3, CBC, ESR #### [address] #### CELIAC #### [facility] , Potassium [Moles/Vol] 4.0 mmol/L Normal 3.5-5.1 [facility] Comment on above: Order Comment: Reaso n for Exam Crohns disease with complication, unspecified gastrointestin Performed By: #### C RP, CMP, TSH3, CBC, ESR #### [address] #### CELIAC #### [facility] , Protein [Mass/Vol] 6.6 g/dL Normal 6.1-7.9 [facility] Comment on above: Order Comment: Reaso n for Exam Crohns disease with complication, unspecified gastrointestin Performed By: #### C RP, CMP, TSH3, CBC, ESR #### [address] #### CELIAC #### [facility] , Sodium [Moles/Vol] 138 mmol/L Normal 136-146 [facility] Comment on above: Order Comment: Reaso n for Exam Crohns disease with complication, unspecified gastrointestin Performed By: #### C RP, CMP, TSH3, CBC, ESR #### [place] [address] [place] #### CELIAC #### [facility] , Urea nitrogen [Mass/Vol] 16 mg/dL Normal 9-23 [facility] Comment on above: Order Comment: Reaso n for Exam Crohns disease with complication, unspecified gastrointestin Performed By: #### C RP, CMP, TSH3, CBC, ESR #### [place] [address] [place] #### CELIAC #### [facility] , Erythrocyte Sedimentation Ra gregory 06-15-2021 ESR (Bld) [Velocity] 20 mm/h Normal 0-29 [facility] Comment on above: Order Comment: Reaso n for Exam Crohns disease with complication, unspecified gastrointestin Result Comment: PERF ORMED BY: [place] [address] PATHOLOGIST BUTTON SEWING MACHINE OPERATOR PADILLA PICKENS M.D. Performed By: #### C RP, CMP, TSH3, CBC, ESR #### [facility] [address] [place] [address] #### CELIAC #### [facility] , Thyroid Stimulating Hormoneo n 06-15-2021 TSH Qn 1.55 m[IU]/L Normal 0.45-5.33 [facility] Comment on above: Order Comment: Reaso n for Exam Crohns disease with complication, unspecified gastrointestin Result Comment: PERF ORMED BY: [place] [address] PATHOLOGIST BUTTON SEWING MACHINE OPERATOR PADILLA PICKENS M.D. Performed By: #### C RP, CMP, TSH3, CBC, ESR #### [facility] [address] [place] [address] #### CELIAC #### [facility] , [facility] BILon 018 [facility] T[facility] * * *Final Report* * *DATE OF EXAM: Jan 06 2018 3:08PM [facility] 0620 - [facility] / REASON: Breast pain * * * * Physician Interpretation * * * *RESULT: #[id number] - [facility] BILBILATERAL DIGITAL DIAGNOSTIC MAMMOGRAM WITH CAD: 01/06/2018HISTORY: The patient reports focal right breast pain (marked with BB). No left breast complaints. Tomosynthesis was also performed today--reported separately.RESULT:TECHNIQ UE: The study was acquired using full field digital technology and interpreted from soft copy.Current study was also evaluated with a Computer Aided Detection (CAD).No prior mammography is provided for comparison.The tissue of both breasts is heterogeneously dense. This may lower the sensitivity of mammography.There are benign appearing scattered asymmetries in both breasts.No significant masses, calcifications, or other findings are seen in either breast.INCOMPLETE: NEEDS ADDITIONAL IMAGING EVALUATIONThere is no abnormality seen in the right breast to correspond with the area of clinical concern indicated by a BB marker in the lower inner quadrant, however, ultrasound is recommended.#[id number] - [facility] BREAST LTD RTULTRASOUND OF RIGHT BREAST: 01/06/2018RESULT:No prior mammography is provided for comparison.Ultrasound of the right breast was performed on the area of interest.No abnormalities were seen sonographically in the right breast. No suspicious solid or cystic mass is identified within the lower inner right breast.IMPRESSION: NEGATIVEThere is no sonographic evidence of malignancy.There is no abnormality seen in the right breast to correspond with the pain in the lower inner quadrant, however, clinical followup is recommended.Return to annual mammogram screening schedule is recommended.SUMMARY:If prior mammography becomes available for comparison and addendum will be made.Viola León M.D.lp/alexy:01/06/2018 16:52:55Imaging Technologist: Roxie Rubio RT(R)(M), [facility] national specialty organizations have released breast cancer screening guidelines for women at average risk for developing breast cancer - guidelines that are based on both evidence and opinion, yet differ on when to start and how often to screen for breast cancer. With representation from Breast Imaging, Internal Medicine, Women's Health, Family Medicine, and Medical/Surgical Oncology, the [facility] has carefully reviewed the data and reached the following consensus:1) All women should engage in shared decision-making with their providers to decide when to start and how often to screen;2) All women should have the opportunity to start screening mammography at age 40;3) For women ages 45-55, we recommend annual screening mammograms;4) For women ages 55 and over, we support both the transition from an annual to a biennial interval if this aligns more with patient's values and preferences, or continuation with annual screening;5) All women should discuss with their providers when to stop screening mammograms. OVERALL STUDY BIRADS: 2 Benign findingTranscriptionist: AlexyTranscriblatia Date/Time: Jan 06 2018 2:49PDictated by: VIOLA LEÓN MDThis examination was interpreted and the report reviewed and electronically signed by: VIOLA LEÓN MD on Jan 06 2018 4:52PM [id number] Normal [facility] NAZAN[facility] ONLY SAME DAY TAMY - NBon 01-06-2018 [facility] ONLY SAME DAY TAMY -NB * * *Final Report* * *DATE OF EXAM: Jan 06 2018 3:25PM [facility] 0586 - [facility]AN[facility] ONLY SAME DAY TAMY -NB / REASON: Breast pain * * * * Physician Interpretation * * * *RESULT: #[id number] - [facility] ONLY SAME DAY TAMY -NBBILATERAL DIGITAL DIAGNOSTIC MAMMOGRAM TOMOSYNTHESIS WITH CAD: 01/06/2018HISTORY: The patient reports focal right breast pain (marked with BB). No left breast complaints.RESULT:TECHNIQ UE: The study was acquired using full field digital technology and interpreted from soft copy.Digital Breast Tomosynthesis (DBT) images were obtained and used to assist in the interpretation of this examination.Current study was also evaluated with a Computer Aided Detection (CAD).Comparison is made to exam dated: 01/06/2018 mammogram - [facility].The tissue of both breasts is heterogeneously dense. This may lower the sensitivity of mammography.There are benign appearing scattered asymmetries in both breasts.No significant masses, calcifications, or other findings are seen in either breast.IMPRESSION: INCOMPLETE: NEEDS ADDITIONAL IMAGING EVALUATIONThere is no abnormality seen in the right breast to correspond with the area of clinical concern indicated by a BB marker in the lower inner quadrant, however, ultrasound is recommended.SUMMARY:Estefany fitch right breast ultrasound was also performed today. Please see separate report.If prior mammography becomes available for comparison and addendum will be made.Viola León M.D.lp/alexy:01/06/2018 16:56:54Imaging Technologist: Roxie DEE(Asad)([place]), [facility] Center[facility]: 0 Incomplete: needs additional imaging evaluationMultiple national specialty organizations have released breast cancer screening guidelines for women at average risk for developing breast cancer - guidelines that are based on both evidence and opinion, yet differ on when to start and how often to screen for breast cancer. With representation from Breast Imaging, Internal Medicine, Women's Health, Family Medicine, and Medical/Surgical Oncology, the [facility] has carefully reviewed the data and reached the following consensus:1) All women should engage in shared decision-making with their providers to decide when to start and how often to screen;2) All women should have the opportunity to start screening mammography at age 40;3) For women ages 45-55, we recommend annual screening mammograms;4) For women ages 55 and over, we support both the transition from an annual to a biennial interval if this aligns more with patient's values and preferences, or continuation with annual screening;5) All women should discuss with their providers when to stop screening mammograms.Transcriptioni st: PenradTranscribe Date/Time: Jan 06 2018 3:25PDictated by: VIOLA LEÓN MDThis examination was interpreted and the report reviewed and electronically signed by: VIOLA LEÓN MD on Jan 06 2018 4:56PM [id number] Normal [facility] [employer] BREAST LTD RTon 01-06 [facility] [employer] BREAST IncreaseCard RT * * *Final Report* * *DATE OF EXAM: Jan 06 2018 3:50PM [facility] [address] [facility] [employer] BREAST IncreaseCard RT / REASON: Breast pain * * * * Physician Interpretation * * * * #[id number] - [facility] BILBILATERAL DIGITAL DIAGNOSTIC MAMMOGRAM WITH CAD: 01/06/2018HISTORY: The patient reports focal right breast pain (marked with BB). No left breast complaints. Tomosynthesis was also performed today--reported separately.RESULT:TECHNIQ UE: The study was acquired using full field digital technology and interpreted from soft copy.Current study was also evaluated with a Computer Aided Detection (CAD).No prior mammography is provided for comparison.The tissue of both breasts is heterogeneously dense. This may lower the sensitivity of mammography.There are benign appearing scattered asymmetries in both breasts.No significant masses, calcifications, or other findings are seen in either breast.INCOMPLETE: NEEDS ADDITIONAL IMAGING EVALUATIONThere is no abnormality seen in the right breast to correspond with the area of clinical concern indicated by a BB marker in the lower inner quadrant, however, ultrasound is recommended.#[id number] - [facility] [employer] RTULTRASOUND OF RIGHT BREAST: 01/06/2018RESULT:No prior mammography is provided for comparison.Ultrasound of the right breast was performed on the area of interest.No abnormalities were seen sonographically in the right breast. No suspicious solid or cystic mass is identified within the lower inner right breast.IMPRESSION: NEGATIVEThere is no sonographic evidence of malignancy.There is no abnormality seen in the right breast to correspond with the pain in the lower inner quadrant, however, clinical followup is recommended.Return to annual mammogram screening schedule is recommended.SUMMARY:If prior mammography becomes available for comparison and addendum will be made.Viola León M.D.lp/alexy:01/06/2018 16:52:55Imaging Technologist: Roxie DEE(Asad)(M), [facility] national specialty organizations have released breast cancer screening guidelines for women at average risk for developing breast cancer - guidelines that are based on both evidence and opinion, yet differ on when to start and how often to screen for breast cancer. With representation from Breast Imaging, Internal Medicine, Women's Health, Family Medicine, and Medical/Surgical Oncology, the [facility] has carefully reviewed the data and reached the following consensus:1) All women should engage in shared decision-making with their providers to decide when to start and how often to screen;2) All women should have the opportunity to start screening mammography at age 40;3) For women ages 45-55, we recommend annual screening mammograms;4) For women ages 55 and over, we support both the transition from an annual to a biennial interval if this aligns more with patient's values and preferences, or continuation with annual screening;5) All women should discuss with their providers when to stop screening mammograms. OVERALL STUDY BIRADS: 2 Benign findingTranscriptionist: AlexyTranscriblatia Date/Time: Jan 06 2018 2:49PDictated by : VIOLA LEÓN MDThis examination was interpreted and the report reviewed and electronically signed by: VIOLA LEÓN MD on Jan 06 2018 4:52PM [id number] Normal [facility] CNOVon 12-12-2017 CNOV Office Visit (AVONGY) DENISE REID ([id number]) 1970 FDate Time Provider Iksashxpga18/11/18 9:30 AM KARON GARRETT During your visit today, we recorded the following information about you: Blood pressure Weight Height Last Period 100/68 69.4 kg 1.676 m 11/24/17Jeniffer Devang Carlos 12/12/2017 9:54 AM SignedChaperone offered: Patient declines.Karon Garrett MD 12/12/2017 2:46 PM EileenDenise Reid is a 47 year old who presents for her annual gynecologic examwith complaints, pain right breast for afew months .Menses: cycles every 28-30 days and 5 days of flow.Contraception: condomsHPV vaccine: NoLast Pap: 2011 normal HPV: ?History of abnormal pap: NoLast mammogram: 2011normalSexually active: YesObstetric History T0 L0 SAB0 TAB0 Ectopic0 Multiple0 Live Rydfpo5LONC MEDICAL HISTORYDiagnosis Date- Back pain- Crohn disease (HCC)- Depression- Generalized anxiety disorder Anxiety, GeneralizedPAST SURGICAL HISTORYProcedure Laterality Date- APPENDECTOMY- PAST SURGICAL HISTORY OF right breast biopsy--everything was fine- PAST SURGICAL HISTORY OF right knee sugery times 4- PAST SURGICAL HISTORY OF left knee surgery- PAST SURGICAL HISTORY OF back surgery- PAST SURGICAL HISTORY OF crohns surgery- PAST SURGICAL HISTORY OF wisdom teeth removedFAMILY HISTORYProblem Relation Age of Onset- Diabetes Father- Hypertension Father- Heart disease Father- Stroke FatherSOCIAL HISTORYSocial HistorySubstance Use Topics- Smoking status: Current Every Day Smoker Packs/day: 1.00 Types: Cigarettes- Smokeless tobacco: Never Used- Alcohol use 24.0 oz/week Comment: sociallyREVIEW OF SYSTEMSAbdomen: No abdominal pain, nausea, vomiting, diarrhea, or constipation. Nobloating, early satiety, indigestion, or increased flatulence.Bladder: No dysuria, gross hematuria, urinary frequency, urinary urgency, orincontinence.Breast: No breast lumps, nipple d/c, overlying skin changes, redness or skinretraction.Allergies and current medication updated:YesColoscopy 6months agoEXAM: BP 100/68 Ht 5' 6 (1.68m) Wt 153 lb (69.4kg) LMP 11/24/2017 BMI24.71 kg/(m2).GENERAL: pleasant, female in no apparent distressHEENT: Normocephalic, atraumatic, mucus membranes moist and no lesionsNECK: Supple, full range of motion, no adenopathy and thyroid normalDERMATOLOGY: Normal, without lesions, non-icteric and non-hirsuteBREAST: soft, non-tender, symmetric, no dominant mass, normal nipple-areolarcomplex, no lymphadenopathy and no nipple dischargeCHEST: Normal inspiratory effortABDOMEN: soft, non-tender and no massesPELVIC: external genitalia normal, normal Bartholin's glands, urethra, [place]'sglands, no vulvar lesions, no cervical lesions, good vaginal support,physiologic discharge present, normal appearing perineal body and perianalregionBIMANUAL: uterus normal size, shape and consistency, no adnexal masses andnon-tenderRECTOVAGINAL : rectovaginal exam negative for any masses or nodularity.NEURO: alert and oriented x3,exam grossly non-focalEXTREMITIES: normalASSESSMENT/PLAN:1) Health maintenance:Pap done with HPV.Mammogram ordered.Nutrition, exercise and routine health maintenance exams reviewed.Calcium/Vitamin D supplementation information provided.Smoking cessation: Smoking cessation encouraged and resources provided.Benefits of smoking cessation reviewed.2) Contraception: condoms. Contraceptive options reviewed and informationprovided.3) STD screening: Declined STD check.4) Follow up one year or sooner as neededDiagnostic mammogram ordered for breast tenderness, benign examAleyda Bhandari MD 12/12/2017 10:36 AM SignedACOG Screening Guidelines (2015)The following health screening schedule is recommended by the [place] [employer] (ACOG). Some of these tests may be ordered orperformed by your primary care doctor.Pap test screeningThe pap test looks at cells on the cervix (the opening from the vagina to theuterus) to look for cancer or pre-cancerous changes. These changes are causedby the human papillomavirus (HPV). Studies estimate that half of all womenwill test positive for this virus within 3 years of starting sexual activity.For young women with a normal immune system, 90% of HPV infections will resolvewithin 2 years. There is a vaccine available against some forms of HPV. Thisis recommended for girls and women age 9-26 and is a series of 3 injectionsover 6 months. Because this vaccine does not protect against all HPV typeswhich can cause cervical cancer, women who received the vaccine still need paptests.Pap smear screening should be started at age 21. The pap test should be doneevery 3 years from age 21-29. From age 30-65, pap smears can be done every 5years if HPV test is negative or every 3 years if HPV testing is not done. Forwomen over the age of 65, ACOG recommends against screening women who have hadadequate prior screening and are not otherwise at high risk for cervicalcancer. Women who have had a hysterectomy also do not need routine pap smearscreening unless the pap smear was done for a cervical cancer or moderate tosevere dysplasia.Breast cancer screeningMammogram should be performed every 1-2 years starting at age 40 and every yearstarting at age 50. Screening may be started earlier depending on familyhistory.Cholesterol screeningLipid panel (cholesterol test) should be checked every 5 years starting at age45.Diabetes screeningFasting glucose (blood sugar) test should be performed every 3 years startingat age 45.Colorectal cancer screeningStarting at age 50, women should have a screening colonoscopy at least every 10years. Screening may be started earlier depending on family history.Thyroid screeningThyroid function test (TSH) should be checked every 5 years starting at age 50.Bone mineral density screeningAll postmenopausal women age 65 and over and postmenopausal women with riskfactors for osteoporosis should have a bone mineral density test performed.Risk factors include race, family history of osteoporosis, personalhistory of fractures, poor nutrition, smoking, heavy alcohol use, earlymenopause, low calcium intake and low body weight. Certain medical conditionsand long-term use of some medications may also increase risk.Calcium and Vitamin D Supplementation (from the National Institutes of HealthOffice of Dietary Supplements 2011)Calcium is required by the body for blood vessel, muscle, hormone and nervefunctioning. Most of the body's calcium is stored in the bones and teeth whereit supports structure and function. Bone is continuously broken down andreformed. When bone breakdown exceeds formation, especially in postmenopausalwomen, bone loss can increase the risk of osteoporosis and fractures. Inaddition to low calcium intake, women who smoke, have a family history ofosteoporosis, are thin, or , or who take certain medicationssuch as cancer chemotherapy, seizure mediations and steroids are at increasedrisk of osteoporosis.The calcium requirements in women change with age. The National Institutes ofHealth (NIH) recommends:1000mg elemental calcium for premenopausal women age 19-505158yf elemental calcium for postmenopausal women and all women over 50Milk, yogurt, and cheese are rich natural sources of calcium and are the majorfood contributors in the [place]. For example, 8oz of milk (whole, lowfator skim) contains about 300mg calcium, 8oz of yogurt contains 415mg. Nondairysources include salmon and sardines and vegetables, such as [place]an cabbage,kale, and broccoli. Foods fortified with calcium include many fruit juices,tofu and cereals. For more food calcium content information, visithttp://ods.od.nih.go v/factsheets/calcium.Calc ium supplements come in several different forms. Remember that therecommendations are for millgrams (mg) of elemental calcium which may be lessthan the total weight of the supplement. The amount of elemental calcium isrequired to be printed on the label. Calcium carbonate is the least expensiveform. It must be taken on a full stomach to be properly absorbed. Some patientsmay experience gas or constipation. Calcium phosphate and calcium citrate maybe taken either with or without food and tend to have less side effects but aregenerally more expensive.Because of its ability to neutralize stomach acid, calcium carbonate is foundin some cdzs-oqh-lbjixyk antacid products, such as Tums? and Rolaids?.Depending on its strength, each chewable pill or softchew provides 200 to 400mg of elemental calcium.The percentage of calcium absorbed depends on the total amount of elementalcalcium consumed at one time. Absorption is highest in doses <500mg. So a womanwho takes 1,000mg/day of calcium from supplements should split the dose andtake 500mg at two separate times during the day.Too much calcium can cause kidney stones, constipation, difficulty absorbingother nutrients and calcium buildup in blood vessels. Women under 50 should notexceed 2500mg/day (2000mg/day for women over 50) of calcium from food andsupplements.Excessive alcohol and caffeine intake can inhibit absorption of calcium.Calcium can reduce the absorption of some medications if taken at the same timeof day (bisphosphonates, thyroid medication, Phenytoin and other seizuremedications, some antibiotics and iron supplements).Vitamin D promotes calcium absorption in the gut and maintains adequate bloodlevels of calcium and phosphate for normal bone growth and bone remodeling.Vitamin D also helps regulate cell growth as well as nerve, muscle and immunesystem function. Vitamin D is produced in the skin as a result of ultravioletsunlight rays and must be altered in the liver and kidney to become its activeform.Recommended intake according to the National Institutes of Health is 600International Units (IU) for girls and women ages 1-70 and 800 IU for womenover 70. Very few foods in nature contain vitamin D. The flesh of fatty fish(such as salmon, tuna, and mackerel) and fish liver oils are among the bestsources. Small amounts of vitamin D are found in beef liver, cheese, mushroomsand egg yolks. Most people meet at least some of their vitamin D needs throughexposure to sunlight. Season, time of day, length of day, cloud cover, smog,skin melanin content, and sunscreen are among the factors that affect UVradiation exposure and vitamin D synthesis. Despite the importance of the sunfor vitamin D synthesis, it is prudent to limit exposure of skin to sunlightand avoid tanning beds. UV radiation is a carcinogen responsible for most ofthe estimated 1.5 million skin cancers that occur annually in the [facility]. Lifetime cumulative UV damage to skin is also responsible for someage-associated dryness and other cosmetic changes.In supplements and fortified foods, vitamin D is available in two forms, D2(ergocalciferol) and D3 (cholecalciferol). The two are equivalent at normalsupplement doses. For women who require high supplement doses because ofvitamin D deficiency, D3 may work better to raise blood levels. Somemedications can prevent proper absorption of Vitamin D. These includelaxatives, corticosteroids like prednisone, the seizure drugs phenobarbital andphenytoin, the weight-loss drug orlistat ( Xenical? and AlliTM) and thecholesterol-lowering drug cholestyramine (Questran?, LoCholest?, andPrevalite?). Talk to your doctor about adjusting your recommended daily vitaminD dosage if you take these medications.You should not exceed 4000 mg of vitamin D supplementation daily unlessspecifically prescribed by your doctor.SMOKING CESSATIONStopping smoking is one of the most important things you can do to protect yourcurrent and future health, as well as that of your family. It is an potentrisk factor for the future development of coronary artery disease and heartattacks.Smoking is both an addiction and a learned behavior. The nicotine withdrawaltakes anywhere from 2-4 weeks and results in symptoms such as irritability,fatigue, insomnia, coughing, dizziness, poor concentration, hunger andcigarette cravings. After the nicotine withdrawal period, the learned linkagebetween certain acts or situations and cigarette use remain. Strategies todeal with these must be developed along with new behaviors to ensure successfulsmoking cessation.[facility] Sm[facility] C[facility]ation App[facility] Line [facility] [phone] [facility] Tobacco Quit line: National Cancer [place] at http://www.smokefree.govA mer[place] Lung Association at http://www.lungusa.orgAme rican Cancer Society at http://www.cancer.orgSTRA TEGIES TOWARD SMOKING CESSATION- Make a list of the reasons why you want to quit, plus the benefits to begained, and compare them to the reasons why you should continue to smoke.- Pick a specific quit date.- If you are interested in using nicotine patches or gum to assist with thenicotine withdrawal, let your doctor know.- Inform friends, family, and co-workers that you are quitting and when yourquit date is. Ask for their understanding and support.- Prepare your environment by removing all cigarettes prior to your quit date.- Prior to your quit date, avoid smoking in places where you spend a lot oftime (such as the house, work, car).- From previous quit attempts, identify what helped you to stop smoking.- From previous quit attempts, identify what triggered relapse. How can youavoid that again?- What things (situations, emotions) do you anticipate will be mostchallenging, especially in the first few weeks, to your quitting effort?- What can you do to address these challenges?- Avoid (or limit) alcohol consumption during the quitting process.- If your spouse or close coworker currently smokes, consider quitting togetheror at the very least, develop specific plans to maintain your cigaretteabstinence while in the home or at work.- Take each day, each hour, each craving, one at a time. Every step or actionyou take toward smoking cessation is a success. The only failure is thefailure to try.- The health of you and your family is worth the effort.STOP SMOKING CHECK LISTPreparing to Quit:___ Make a personal pact with yourself to quit.___ Pick a date for quitting completely. (My date to quit is ____.)___ Write down on a card the three most important reasons for quitting. Carrythe card with you from now on. Look at it several times a day.___ Prior to quitting, eliminate smoking completely in 2 or 3 of your high risksituations.___ Reduce consumption to one pack per day or less.___ Change to a less desirable brand of cigarettes.___ Discard your whizzer operator. Use matches. Carry your cigarettes in a differentplace.___ Spend a little time each day picturing in your mind stressful eventsoccurring in the future and you not smoking.Actual Quitting: The First Two Weeks___ Get rid of all cigarettes. Put away all smoking related objects such asashtrays. Ask the people you live with not to smoke in your presence for thefirst two weeks.___ Spend as much time as possible with non-smoking people.___ Keep busy, especially on evenings and weekends.___ Avoid high risk situations (large parties, bars, etc.).___ Spend time in places that prohibit or discourage smoking (e.g., theaters,libraries).___ Drink plenty of fluids.___ Don't substitute food or sugar based products for cigarettes. Use approvedsubstitutions. (ice water, high bulk/low calorie foods, sugarless gum,mouthwash, brushing teeth)___ Begin or increase a regular exercise program.___ When experiencing withdrawal effects: 1. Remind yourself why you are quitting (from your card). 2. Remind yourself that whatever discomfort you are experiencingis only a tiny fraction of the probable discomfort associated with continuedsmoking. 3. Practice deep breathing or other relaxation techniques.___ Remind yourself that you can free yourself from this unhealthy, expensive,messy habit and become a non-smoker.Maintenance of Quitting: After two weeks___ Remind yourself that the desire to smoke is linked to many situations,people and emotional stress.___ When you do have a desire to smoke, remember that it only lasts a fewseconds: distract yourself and leave the situation if necessary.___ After each desire to smoke has passed, pat yourself on the back, you havejust made progress in breaking the habit forever.___ Save the money on wasted on cigarettes in a special fund and buy yourselfsomething nice.Maintenance of Quitting: After Two Months___ Be particularly vigilant when unusual life events occur. (weddings,holidays, vacations).___ Be particularly vigilant when stressful life events occur (relationship,financial or work problems).___ Remind yourself regularly that not smoking is completely within yourpersonal control.___ Never lull yourself into thinking you are out of danger and you can safelyhave a cigarette or two.___ If you do slip and have one or more cigarettes, do not conclude that youhave failed at quitting. Return to complete abstinence immediately and learnfrom your experience.___ If you have gained significant weight since quitting, now is the time to dosomething about it.___ Each time you see a cigarettes advertisement, remind yourself of why youquit. Also remember that a powerful industry spends billions of dollars eachyear trying to get people like yourself re-hooked .Referring Provider: SELF [200]Allergies As of Date: 12/12/2017 Noted Allergy ReactionPENICILLINS 06/26/2004SULFA (SULFONAMIDE ANTIBIOTICS) 06/26/2004Date Reviewed: 12/12/2017Reviewed by: Karon Garrett - Fully AssessedReason for Visit: New Patient [172] Yearly Exam [187] Cmt: last pap--6 or 7 years --per pt pap was neg Breast Problem [16] Cmt: right side tendernessReason For Visit History RecordedPrimary Visit Diagnosis:Breast pain [N64.4] Other Visit Diagnoses:Encounter for gynecological examination (general) (routine) without abnormal findings [Z01.419] Screening for cervical cancer [Z12.4] Encounter for screening for human papillomavirus (HPV) [Z11.51] Encounter for screening mammogram for breast cancer [Z12.31]Order(s):PAP FLUID CERVICAL SCREENING [[id number]] Order #: [id number]. #:[id number] [facility] [[id number]] Order #: [id number] FUTURE HPV W/GENOTYPE [SQHPVHRR] Order #: [id number]. #:[id number] tions as of 12/12/2017 Sig: IBU 800 MG TABLET QUESTRAN 4 GRAM ORAL POWDER Take as directedProblem List As Of Date 12/12/2017 Noted Resolved DIARRHEA NOS [R19.7] INVALID FOR* Other instructions from your clinician: ACOG Screening Guidelines (2015) The following health screening schedule is recommended by the [place] [employer] (ACOG). Some of these tests may be ordered or performed by your primary care doctor. Pap test screening The pap test looks at cells on the cervix (the opening from the vagina to the uterus) to look for cancer or pre-cancerous changes. These changes are caused by the human papillomavirus (HPV). Studies estimate that half of all women will test positive for this virus within 3 years of starting sexual activity. For young women with a normal immune system, 90% of HPV infections will resolve within 2 years. There is a vaccine available against some forms of HPV. This is recommended for girls and women age 9-26 and is a series of 3 injections over 6 months. Because this vaccine does not protect against all HPV types which can cause cervical cancer, women who received the vaccine still need pap tests. Pap smear screening should be started at age 21. The pap test should be done every 3 years from age 21-29. From age 30-65, pap smears can be done every 5 years if HPV test is negative or every 3 years if HPV testing is not done. For women over the age of 65, ACOG recommends against screening women who have had adequate prior screening and are not otherwise at high risk for cervical cancer. Women who have had a hysterectomy also do not need routine pap smear screening unless the pap smear was done for a cervical cancer or moderate to severe dysplasia. Breast cancer screening Mammogram should be performed every 1-2 years starting at age 40 and every year starting at age 50. Screening may be started earlier depending on family history. Cholesterol screening Lipid panel (cholesterol test) should be checked every 5 years starting at age 45. Diabetes screening Fasting glucose (blood sugar) test should be performed every 3 years starting at age 45. Colorectal cancer screening Starting at age 50, women should have a screening colonoscopy at least every 10 years. Screening may be started earlier depending on family history. Thyroid screening Thyroid function test (TSH) should be checked every 5 years starting at age 50. Bone mineral density screening All postmenopausal women age 65 and over and postmenopausal women with risk factors for osteoporosis should have a bone mineral density test performed. Risk factors include race, family history of osteoporosis, personal history of fractures, poor nutrition, smoking, heavy alcohol use, early menopause, low calcium intake and low body weight. Certain medical conditions and long-term use of some medications may also increase risk. Calcium and Vitamin D Supplementation (from the National Institutes of Health Office of Dietary Supplements 2011) Calcium is required by the body for blood vessel, muscle, hormone and nerve functioning. Most of the body's calcium is stored in the bones and teeth where it supports structure and function. Bone is continuously broken down and reformed. When bone breakdown exceeds formation, especially in postmenopausal women, bone loss can increase the risk of osteoporosis and fractures. In addition to low calcium intake, women who smoke, have a family history of osteoporosis, are thin, or , or who take certain medications such as cancer chemotherapy, seizure mediations and steroids are at increased risk of osteoporosis. The calcium requirements in women change with age. The National Institutes of Health (NIH) recommends: 1000mg elemental calcium for premenopausal women age 19-50 1200mg elemental calcium for postmenopausal women and all women over 50 Milk, yogurt, and cheese are rich natural sources of calcium and are the major food contributors in the [place]. For example, 8oz of milk (whole, lowfat or skim) contains about 300mg calcium, 8oz of yogurt contains 415mg. Nondairy sources include salmon and sardines and vegetables, such as [place]an cabbage, kale, and broccoli. Foods fortified with calcium include many fruit juices, tofu and cereals. For more food calcium content information, visit http://ods.od.nih.gov/fac tsheets/calcium. Calcium supplements come in several different forms. Remember that the recommendations are for millgrams (mg) of elemental calcium which may be less than the total weight of the supplement. The amount of elemental calcium is required to be printed on the label. Calcium carbonate is the least expensive form. It must be taken on a full stomach to be properly absorbed. Some patients may experience gas or constipation. Calcium phosphate and calcium citrate may be taken either with or without food and tend to have less side effects but are generally more expensive. Because of its ability to neutralize stomach acid, calcium carbonate is found in some fyst-msb-ceztcpr antacid products, such as Tums? and Rolaids?. Depending on its strength, each chewable pill or softchew provides 200 to 400 mg of elemental calcium. The percentage of calcium absorbed depends on the total amount of elemental calcium consumed at one time. Absorption is highest in doses <500mg. So a woman who takes 1,000mg/day of calcium from supplements should split the dose and take 500mg at two separate times during the day. Too much calcium can cause kidney stones, constipation, difficulty absorbing other nutrients and calcium buildup in blood vessels. Women under 50 should not exceed 2500mg/day (2000mg/day for women over 50) of calcium from food and supplements. Excessive alcohol and caffeine intake can inhibit absorption of calcium. Calcium can reduce the absorption of some medications if taken at the same time of day (bisphosphonates, thyroid medication, Phenytoin and other seizure medications, some antibiotics and iron supplements). Vitamin D promotes calcium absorption in the gut and maintains adequate blood levels of calcium and phosphate for normal bone growth and bone remodeling. Vitamin D also helps regulate cell growth as well as nerve, muscle and immune system function. Vitamin D is produced in the skin as a result of ultraviolet sunlight rays and must be altered in the liver and kidney to become its active form. Recommended intake according to the National Institutes of Health is 600 International Units (IU) for girls and women ages 1-70 and 800 IU for women over 70. Very few foods in nature contain vitamin D. The flesh of fatty fish (such as salmon, tuna, and mackerel) and fish liver oils are among the best sources. Small amounts of vitamin D are found in beef liver, cheese, mushrooms and egg yolks. Most people meet at least some of their vitamin D needs through exposure to sunlight. Season, time of day, length of day, cloud cover, smog, skin melanin content, and sunscreen are among the factors that affect UV radiation exposure and vitamin D synthesis. Despite the importance of the sun for vitamin D synthesis, it is prudent to limit exposure of skin to sunlight and avoid tanning beds. UV radiation is a carcinogen responsible for most of the estimated 1.5 million skin cancers that occur annually in the [place]. Lifetime cumulative UV damage to skin is also responsible for some age-associated dryness and other cosmetic changes. In supplements and fortified foods, vitamin D is available in two forms, D2 (ergocalciferol) and D3 (cholecalciferol). The two are equivalent at normal supplement doses. For women who require high supplement doses because of vitamin D deficiency, D3 may work better to raise blood levels. Some medications can prevent proper absorption of Vitamin D. These include laxatives, corticosteroids like prednisone, the seizure drugs phenobarbital and phenytoin, the weight-loss drug orlistat ( Xenical? and AlliTM) and the cholesterol-lowering drug cholestyramine (Questran?, LoCholest?, and Prevalite?). Talk to your doctor about adjusting your recommended daily vitamin D dosage if you take these medications. You should not exceed 4000 mg of vitamin D supplementation daily unless specifically prescribed by your doctor. SMOKING CESSATION Stopping smoking is one of the most important things you can do to protect your current and future health, as well as that of your family. It is an potent risk factor for the future development of coronary artery disease and heart attacks. Smoking is both an addiction and a learned behavior. The nicotine withdrawal takes anywhere from 2-4 weeks and results in symptoms such as irritability, fatigue, insomnia, coughing, dizziness, poor concentration, hunger and cigarette cravings. After the nicotine withdrawal period, the learned linkage between certain acts or situations and cigarette use remain. Strategies to deal with these must be developed along with new behaviors to ensure successful smoking cessation. RESOURCES [facility] Smoking Cessation Appointment Line [facility] 4-188-ITJL-NOW [place] Tobacco Quit line: National Cancer [place] at http://www.smokefree.gov [place] [employer] at http://www.lungusa.org [place] [employer] at http://www.cancer.org STRATEGIES TOWARD SMOKING CESSATION - Make a list of the reasons why you want to quit, plus the benefits to be gained, and compare them to the reasons why you should continue to smoke. - Pick a specific quit date. - If you are interested in using nicotine patches or gum to assist with the nicotine withdrawal, let your doctor know. - Inform friends, family, and co-workers that you are quitting and when your quit date is. Ask for their understanding and support. - Prepare your environment by removing all cigarettes prior to your quit date. - Prior to your quit date, avoid smoking in places where you spend a lot of time (such as the house, work, car). - From previous quit attempts, identify what helped you to stop smoking. - From previous quit attempts, identify what triggered relapse. How can you avoid that again? - What things (situations, emotions) do you anticipate will be most challenging, especially in the first few weeks, to your quitting effort? - What can you do to address these challenges? - Avoid (or limit) alcohol consumption during the quitting process. - If your spouse or close coworker currently smokes, consider quitting together or at the very least, develop specific plans to maintain your cigarette abstinence while in the home or at work. - Take each day, each hour, each craving, one at a time. Every step or action you take toward smoking cessation is a success. The only failure is the failure to try. - The health of you and your family is worth the effort. STOP SMOKING CHECK LIST Preparing to Quit: ___ Make a personal pact with yourself to quit. ___ Pick a date for quitting completely. (My date to quit is ____.) ___ Write down on a card the three most important reasons for quitting. Carry the card with you from now on. Look at it several times a day. ___ Prior to quitting, eliminate smoking completely in 2 or 3 of your high risk situations. ___ Reduce consumption to one pack per day or less. ___ Change to a less desirable brand of cigarettes. ___ Discard your whizzer operator. Use matches. Carry your cigarettes in a different place. ___ Spend a little time each day picturing in your mind stressful events occurring in the future and you not smoking. Actual Quitting: The First Two Weeks ___ Get rid of all cigarettes. Put away all smoking related objects such as ashtrays. Ask the people you live with not to smoke in your presence for the first two weeks. ___ Spend as much time as possible with non-smoking people. ___ Keep busy, especially on evenings and weekends. ___ Avoid high risk situations (large parties, bars, etc.). ___ Spend time in places that prohibit or discourage smoking (e.g., theaters, libraries). ___ Drink plenty of fluids. ___ Don't substitute food or sugar based products for cigarettes. Use approved substitutions. (ice water, high bulk/low calorie foods, sugarless gum, mouthwash, brushing teeth) ___ Begin or increase a regular exercise program. ___ When experiencing withdrawal effects: 1. Remind yourself why you are quitting (from your card). 2. Remind yourself that whatever discomfort you are experiencing is only a tiny fraction of the probable discomfort associated with continued smoking. 3. Practice deep breathing or other relaxation techniques. ___ Remind yourself that you can free yourself from this unhealthy, expensive, messy habit and become a non-smoker. Maintenance of Quitting: After two weeks ___ Remind yourself that the desire to smoke is linked to many situations, people and emotional stress. ___ When you do have a desire to smoke, remember that it only lasts a few seconds: distract yourself and leave the situation if necessary. ___ After each desire to smoke has passed, pat yourself on the back, you have just made progress in breaking the habit forever. ___ Save the money on wasted on cigarettes in a special fund and buy yourself something nice. Maintenance of Quitting: After Two Months ___ Be particularly vigilant when unusual life events occur. (weddings, holidays, vacations). ___ Be particularly vigilant when stressful life events occur (relationship, financial or work problems). ___ Remind yourself regularly that not smoking is completely within your personal control. ___ Never lull yourself into thinking you are out of danger and you can safely have a cigarette or two. ___ If you do slip and have one or more cigarettes, do not conclude that you have failed at quitting. Return to complete abstinence immediately and learn from your experience. ___ If you have gained significant weight since quitting, now is the time to do something about it. ___ Each time you see a cigarettes advertisement, remind yourself of why you quit. Also remember that a [employer] industry spends billions of dollars each year trying to get people like yourself re-hooked .Visit Notes:>> Jeniffer Siddiqi Ma Galilea Dec 12, 2017 9:47 AM Status: SignedChaperone offered: Patient declines.Medications Discontinued During This Encounter citalopram (CELEXA) 20 mg ORAL Tab 30 1 06/16/2006 12/12/2017 Route: ORAL Sig: Take one(1) tablet daily in the morning. Do not take within 2 hours of takin Questran Disc: Reason for discontinue is not on file. NEXIUM 40 MG CAP 30 11 02/11/2006 12/12/2017 Class: Print RX Route: ORAL Sig: Take one(1) capsule daily. Disc: Reason for discontinue is not on file. VITAMIN B-12 1,000 MCG/ML INJECTION 10 m* 0 06/27/2005 12/12/2017 Class: Print RX Route: INJECTION(UNSPECIFIED PARENTERAL ROUTES) Si mcg IM once a month. Please provide 10 syringes, 23 gauge// Disc: Reason for discontinue is not on file.Disposition: Return in 1 year (on 12/12/2018) for Annual Exam.Follow-up and Disposition History RecordedLetter TextOb/Supervisor Painting [facility] [address] [place], [place] [phone] FaxOctober 2017Lisa Vyd[address] [facility] [address]Cndugracie Reid,I am happy to inform you of the following test results:Pap Smear: normalHigh Risk HPV: negativePlease follow up as scheduled or as needed.Sincerely,Karon Garrett MDEncounter Number: [id number] Status:Closed by KARON GARRETT MD on 12/12/17 Normal [facility] CYTOLOGYon 12-12-2017 CYTOLOGY ADDITIONAL PROCEDURES PRESENT [facility] #: [id number] Physician: KARON GARRETT M.D.SPECIMEN SUBMITTEDA: CERVICAL, SCREENING, FLUID FINAL DIAGNOSISA. CERVICAL, SCREENING, FLUIDSatisfactory for interpretation.Negative for intraepithelial lesion or malignancy.This specimen has been analyzed by the ThinPrep Imaging System, anautomated imaging and review system, which assists the laboratory inevaluating cells on ThinPrep Pap tests. Following automated imaging,selected lua from every slide are reviewed by a patcher bowling ball.CAROLINA Houser(ASCP) (Electronic Signature) ADDITION AL PROCEDURE(S)HUMAN PAPILLOMA VIRUS Date Ordered: 12/13/2017 Date Reported: 12/15/2017 Procedure Results and InterpretationNegative for HPV DNA high risk type 16 by PCR.Negative for HPV DNA high risk type 18 by PCR.Negative for HPV DNA high risk types: 31,33,35,39,45,51,52,56,5 8,59,66,68by PCR.This test was developed and its performance characteristics determined [facility] ([facility]).It has not been cleared or approved by the FDA. [facility] is regulated underCLIA as qualified to perform high-complexity testing. This test is used forclinical purposes. It should not be regarded as investigational or forresearch.CLINICAL DATA ROUTINE EXAM, HPV Testing: Yes, automatic HPV patients over 30Date of Last Menstrual Period:11/24/2017STAINSA: CERVICAL, SCREENING, FLUID THIN PREP GYNJennifer Sanford Mcgee, Laboratory DirectorPatient ID #: [id number] of Report: 12/18/2017Date of Procedure: 12/12/2017Date of Receipt: 12/13/2017Submitted by: KARON GARRETT M.D.Location: AVONGYDiagnostic interpretation performed at [facility], [address] [place] [address].The Pap Smear is a screening test for cervical cancer. False negativeresults occur with all screening tests, emphasizing the need forrescreening at recommended intervals, and clinical correlation. Normal [facility] HPV w/Genotypeon 12-12-2017 HPV HighRisk Other Negative for HPV DNA high risk types: 31,33,35,39,45,51,52,56,5 8,59,66,68 by PCR. Normal [facility] Comment on above: Result Comment: This test was developed and its performance characteristics determined by [facility] [place] ([facility]).It has not been cleared or approved by the FDA. -[facility] is regulated under CLIA as qualified to perform high-complexity testing. This test is used for clinical purposes. It should not be regarded as investigational or for research. Performed By: #### H [facility] ####[facility] [address] [place], [place] [phone] HPV HighRisk Type 16 Negative Normal [facility] Comment on above: Performed By: #### H PVHRR ####[facility] [address] [place], [place] [phone] HPV HighRisk Type 18 Negative Normal [facility] Comment on above: Performed By: #### H PVHRR ####[facility] [address] [place], [place] [phone] PROGRESSon 12-12-2017 Protein mass conc HNO ID: [id number] thor: Karon Blevinsice: (none)Author Type: PhysicianType: Progress NotesFiled: 12/12/2017 2:46 PMNote Text:Denise Reid is a 47 year old who presents for her annual gynecologicexam with complaints, pain right breast for afew months .Menses: cycles every 28-30 days and 5 days of flow.Contraception: condomsHPV vaccine: NoLast Pap: 2011 normal HPV: ?History of abnormal pap: NoLast mammogram: 2012normalSexually active: YesObstetric History T0 L0 SAB0 TAB0 Ectopic0 Multiple0 Live Okhsps0RUIO MEDICAL HISTORYDiagnosis Date- Back pain- Crohn disease (HCC)- Depression- Generalized anxiety disorder Anxiety, GeneralizedPAST SURGICAL HISTORYProcedure Laterality Date- APPENDECTOMY- PAST SURGICAL HISTORY OF right breast biopsy--everything was fine- PAST SURGICAL HISTORY OF right knee sugery times 4- PAST SURGICAL HISTORY OF left knee surgery- PAST SURGICAL HISTORY OF back surgery- PAST SURGICAL HISTORY OF crohns surgery- PAST SURGICAL HISTORY OF wisdom teeth removedFAMILY HISTORYProblem Relation Age of Onset- Diabetes Father- Hypertension Father- Heart disease Father- Stroke FatherSOCIAL HISTORYSocial HistorySubstance Use Topics- Smoking status: Current Every Day Smoker Packs/day: 1.00 Types: Cigarettes- Smokeless tobacco: Never Used- Alcohol use 24.0 oz/week Comment: sociallyREVIEW OF SYSTEMSAbdomen: No abdominal pain, nausea, vomiting, diarrhea, or constipation.No bloating, early satiety, indigestion, or increased flatulence.Bladder: No dysuria, gross hematuria, urinary frequency, urinary urgency,or incontinence.Breast: No breast lumps, nipple d/c, overlying skin changes, redness orskin retraction.Allergies and current medication updated:YesColoscopy 6months agoEXAM: BP 100/68 Ht 5' 6 (1.68m) Wt 153 lb (69.4kg) LMP 11/24/2017 BMI 24.71 kg/(m2).GENERAL: pleasant, female in no apparent distressHEENT: Normocephalic, atraumatic, mucus membranes moist and no lesionsNECK: Supple, full range of motion, no adenopathy and thyroid normalDERMATOLOGY: Normal, without lesions, non-icteric and non-hirsuteBREAST: soft, non-tender, symmetric, no dominant mass, normalnipple-areolar complex, no lymphadenopathy and no nipple dischargeCHEST: Normal inspiratory effortABDOMEN: soft, non-tender and no massesPELVIC: external genitalia normal, normal Bartholin's glands, urethra,[place]'s glands, no vulvar lesions, no cervical lesions, good vaginalsupport, physiologic discharge present, normal appearing perineal body andperianal regionBIMANUAL: uterus normal size, shape and consistency, no adnexal masses andnon-tenderRECTOVAGINAL : rectovaginal exam negative for any masses or nodularity.NEURO: alert and oriented x3,exam grossly non-focalEXTREMITIES: normalASSESSMENT/PLAN:1) Health maintenance:Pap done with HPV.Mammogram ordered.Nutrition, exercise and routine health maintenance exams reviewed.Calcium/Vitamin D supplementation information provided.Smoking cessation: Smoking cessation encouraged and resources provided.Benefits of smoking cessation reviewed.2) Contraception: condoms. Contraceptive options reviewed andinformation provided.3) STD screening: Declined STD check.4) Follow up one year or sooner as neededDiagnostic mammogram ordered for breast tenderness, benign examKaron Garrett MD Normal [facility] Vital Signs Date Time Vital Sign Value Performing Clinician Pia rapp 09-30-2023 10:09-0400 Blood Pressure Location Lennox Aparicio [facility] 09-30-2023 10:09-0400 Diastolic blood pressure 75 mm[Hg] Lennox Azarbenito [facility] 09-30-2023 10:0400 Heart rate 63 /min High Sarmini [facility] 09-30-2023 10:090400 Respiratory rate 16 /min High Sarmini [facility] 09-30-2023 10:040 Systolic blood pressure 113 mm[Hg] High Sarmini [facility] Encounters Encounter Date Encounter Type Care Provider Facility Start: 09-30-2023 End: 09-30-2023 ambulatory [facility] Facility:[facility] Start: 09-30-2023 End: 09-30-2023 Patient encounter procedure Lennox Arriloaal Angelmini [facility] Start: 02-08-2023 End: 02-08-2023 ambulatory Arian Garcia Other [facility] Other Start: 02-08-2023 Telephone encounter [facility] Start: 12-25-2022 End: 12-25-2022 ambulatory [facility] Start: 12-10-2022 End: 12-10-2022 ambulatory [facility] Start: 11-22-2022 End: 11-23-2022 ambulatory [facility] Start: 10-17-2022 End: 10-17-2022 ambulatory [facility] Start: 12-21-2021 End: 12-21-2021 ambulatory Arian Garcia Other [facility] Other Start: 12-21-2021 Telephone encounter [facility] Start: 01-06-2018 End: 01-06-2018 Patient encounter procedure KARON GARRETT [facility] Start: 12-12-2017 End: 12-13-2017 Patient encounter KARON GARRETT [facility] Alireza veland Procedures Date Procedure Procedure Detail Performing Clinician Colonoscopy High Nissa benito Esophagogastroduodenoscopy Aldair Aparicio Payers Date Payer Category Payer Unknown [id number] 1970 Unknown [id number] Social History Date Type Detail Facility Unknown if ever smoked [facility] Other Sex Assigned At [facility] Start: 09-30-2023 Tobacco smoking status Heavy t obacco smoker (finding) [facility] Tobacco smoking status Never [facility] Functional Status Date Assessment Result Facility 09-30-2023 Functional Status N/A [facility] Clinical Notes 10-17-2022 to 12-25-2022 Note Date & Type Note Facility 12-25-2022 Note [facility] Consult Note Reason for visit: SVT HPI: Denise Reid is a 52 y.o. year old with past medical history of palpitations, gerd, chrohns, anxiety She has been having ) Experiencing palpitations associated with some chest discomfort. She was previously seen by her PCP and a Holter monitor was given for 3 days which showed evidence of SVT of 220 bpm. Her chest pain history seem to echo more in terms of exertional complaints and was seen by Emily SHERIDAN who recommended an echocardiogram and stress test. although the EKG portion was positive the perfusion part was negative and subsequently the patient underwent a cardiac cath which was nonrevealing for any significant CAD. she states the episodes of palpitations of rather frequent occurring at least once a week but they do not last more than 2 to 3 minutes. she also has episodes of PVCs which she feels. she is not on any beta-blockers and her blood pressure usually runs in the 100-110 mm range. when she has episodes of SVT in the 200 range she is markedly symptomatic and feels lightheaded She was drinking significant amounts of caffeine with cofffe/ pop but has reduced this. She does smoke tobacco daily. she continues to abuse tobacco but has made a plan to quit in 2023. ECG 08/16/22 shows SR with moderate twave abnormality and ST deviation, consider lateral ischemia Echocardiogram 11/09/2022 Stress test: exercise portion was interpreted as positive but the perfusion part was negative. cardiac cath 12/10/2022 Social: smoker, occasional drinker PMH: No past medical history on file. PSH: Past Surgical History: Procedure Laterality Date APPENDECTOMY BACK SURGERY CARDIAC CATHETERIZATION KNEE SURGERY LAPAROSCOPIC LEFT COLON RESECTION SH: Social Determinants of Health Tobacco Use: High Risk (12/25/2022) Patient History Smoking Tobacco Use: Every Day Smokeless Tobacco Use: Never Passive Exposure: Not on file Alcohol Use: Not on file Financial Resource Strain: Not on file Food Insecurity: Not on file Transportation Needs: Not on file Physical Activity: Not on file Stress: Not on file Social Connections: Not on file Intimate Partner Violence: Not on file Depression: Not on file Housing Stability: Not on file Allergies: Allergies Allergen Reactions Penicillins Sulfa (Sulfonamide Antibiotics) Weight: 72.6kg Visit Vitals BP 113/76 (BP Location: Left arm, Patient Position: Sitting) Pulse 83 Ht 1.702 m (5' 7 ) Wt 72.6 kg (160 lb) SpO2 97% BMI 25.06 kg/m??? OB Status Postmenopausal Smoking Status Every Day BSA 1.85 m??? Meds: Current Outpatient Medications on File Prior to Visit Medication Sig Dispense Refill busPIRone (Buspar) 10 mg tablet Take 10 mg by mouth in the morning and at bedtime. colestipol (Colestid) 1 gram tablet Take 3 g by mouth in the morning and at bedtime. No current facility-administered medications on file prior to visit. ROS: Cardio Basic Cardiovascular Symptoms: no lightheadedness, no leg edema, no syncope, no orthopnea, no PND, no claudication, Constitutional Constitutional: no fever, no night sweats, no significant weight gain, no significant weight loss, no exercise intolerance Eyes Eyes: no dry eyes, no irritation, no vision change ENMT Ears: no difficulty hearing, no ear pain Nose: no frequent nosebleeds, Mouth/Throat: no sore throat, no bleeding gums, no snoring, no dry mouth, no mouth ulcers, no oral abnormalities, no teeth problems Respiratory Respiratory: no cough, no wheezing, no coughing up blood, no sleep apnea Musculoskeletal Musculoskeletal: no muscle aches, no muscle weakness, joint pain+, no back pain, no swelling in the extremities Integumentary Skin no rash, no ulcer, no varicosities, no discoloration, no pruritus Neurologic Neurologic: no loss of consciousness, no weakness, no numbness, no seizures, no dizziness, no headaches Psychiatric Psych: no depression, feeling safe in relationship, no alcohol abuse, Hematologic/Lymphatic Hematologic/Lymphatic no swollen glands, no bruising Physical Exam: Constitutional General Appearance: well-nourished, well-developed, appears stated age Level of Distress: comfortable Psychiatric Mental Status: alert, normal affect Orientation: oriented to time, place, and person Insight: good judgement Eyes Lids and Conjunctivae: non-injected, no xanthelasma ENMT Ears: no lesions on external ear Nose: no lesions on external nose Oropharynx: no cyanosis, no pallor Neck Neck: supple, trachea midline Carotid Arteries: bilateral normal upstroke, no bruits Jugular Veins: normal jugular venous pressure Thyroid: not enlarged Lungs Respiratory Effort: unlabored Chest Exam: normal curvature, no thoracic deformity Auscultation: clear, no wheezing, no rales, no rhonchi Cardiovascular Rate And Rhythm: regular Heart Sounds: normal S1, normal s2, no gallop Systol (more content not included)... [facility] 12-10-2022 Note Cardiovascular Labor atory Report FINAL IMPRESSIONS: Angiographically nonobstructive coronary arteries Normal global left ventricular systolic function by noninvasive imaging RECOMMENDATIONS: Consider noncoronary etiologies for the patient's symptomatology Follow-up with our EP service as scheduled PROCEDURES: Ultrasound-guided access to the left radial artery, bilateral selective coronary angiography via a left radial approach METHODS: After risks, benefits, and alternatives were explained, written informed consent was obtained. The patient was prepped and draped in usual sterile fashion over the left wrist. Local infiltration anesthesia was achieved of the left wrist. Using a micropuncture kit, access to the left radial artery was obtained. A 6 [place] glide sheath was inserted without difficulty. Bilateral selective coronary angiography was performed using JR 4.0 and JL 4.0 catheters. After reviewing the images, it was elected to conclude the procedure. The catheters were removed. The radial sheath was removed with application of a TR band per protocol to achieve optimal hemostasis. FINDINGS: Hemodynamics: AO 113/68 [83] LEFT VENTRICULOGRAPHY: This was not performed. Ejection fraction is 64% by noninvasive stress test. CORONARY ARTERIES: Left main coronary artery: This arises from the left coronary cusp, it bifurcates into the left anterior descending and left circumflex coronary arteries it is free of significant stenosis. Left anterior descending coronary artery: This is angiographically nonobstructive. Left circumflex coronary artery: This appears to be a codominant vessel giving rise to posterolateral branches. It is angiographically nonobstructive. Right coronary artery: This appears to be a small, codominant vessel giving rise to posterior descending artery. There is no significant stenosis. INDICATIONS: Abnormal stress test. [facility] 11-22-[address] depression on jake admill stress Normal MP She does still have exertional chest pain with shortness of breath Given no prior testing and abnormal stress ecg will proced with coronary angiogram Patient understands and is agreeable [facility] 10-29-2022 Note -has been progressiv nubia worsening over the last several months -no prior testing, will order stress and echo [facility] 10-29-2022 Note -she states she coul d be thinking what she is feeling is chest pain -opted for no BB, we discussed doing ischemic eval as none of her symptoms were related to rhythms on monitor -will consider 30 day pending stress / echo [facility] 10-29-2022 Note Exertional chest dis comfort which is new for her -will order stress [facility] 10-29-2022 Note -discussed cessation and how it is advised for CV / overall health [facility] 10-17-2022 Note [facility] Consult Note Reason for visit: new pt, SVT HPI: Denise Reid is a 52 y.o. year old with past medical history of palpitations, gerd, chrohns, anxiety She has been having palpitations infrequently and states she thinks it may be more chest discomfort she had holter monitor for 3 days per pcp which was a PSVT up to 220 bpm. she states she does get chest pain with exertion as well which she has been describing as palpitaitions discussed with patient her symptoms are appear more ischemic at this time, no prior testing. We discussed doing stress / echo and see how she does. Pending resutls will consider 30 day monitor better data on palpitations She was drinking significant amounts of caffeine with cofffe/ pop but has reduced this. She does smoke tobacco daily ECG 08/16/22 shows SR with moderate twave abnormality and ST deviation, consider lateral ischemia Social: smoker, occasional drinker PMH: History reviewed. No pertinent past medical history. PSH: Past Surgical History: Procedure Laterality Date APPENDECTOMY BACK SURGERY KNEE SURGERY LAPAROSCOPIC LEFT COLON RESECTION SH: Social Determinants of Health Tobacco Use: High Risk (10/17/2022) Patient History Smoking Tobacco Use: Every Day Smokeless Tobacco Use: Never Passive Exposure: Not on file Alcohol Use: Not on file Financial Resource Strain: Not on file Food Insecurity: Not on file Transportation Needs: Not on file Physical Activity: Not on file Stress: Not on file Social Connections: Not on file Intimate Partner Violence: Not on file Depression: Not on file Housing Stability: Not on file Allergies: Allergies Allergen Reactions Penicillins Sulfa (Sulfonamide Antibiotics) Weight: 59kg Visit Vitals BP 110/80 (BP Location: Left arm, Patient Position: Sitting, BP Cuff Size: Adult) Pulse 97 Resp 11 Ht 1.702 m (5' 7 ) Wt 59 kg (130 lb) SpO2 96% BMI 20.36 kg/m??? Smoking Status Every Day BSA 1.67 m??? Meds: Current Outpatient Medications on File Prior to Visit Medication Sig Dispense Refill busPIRone (Buspar) 10 mg tablet Take 10 mg by mouth in the morning and at bedtime. colestipol (Colestid) 1 gram tablet Take 3 g by mouth in the morning and at bedtime. No current facility-administered medications on file prior to visit. ROS: Cardio Basic Cardiovascular Symptoms: no lightheadedness, no leg edema, no syncope, no orthopnea, no PND, no claudication, Constitutional Constitutional: no fever, no night sweats, no significant weight gain, no significant weight loss, no exercise intolerance Eyes Eyes: no dry eyes, no irritation, no vision change ENMT Ears: no difficulty hearing, no ear pain Nose: no frequent nosebleeds, Mouth/Throat: no sore throat, no bleeding gums, no snoring, no dry mouth, no mouth ulcers, no oral abnormalities, no teeth problems Respiratory Respiratory: no cough, no wheezing, no coughing up blood, no sleep apnea Musculoskeletal Musculoskeletal: no muscle aches, no muscle weakness, joint pain+, no back pain, no swelling in the extremities Integumentary Skin no rash, no ulcer, no varicosities, no discoloration, no pruritus Neurologic Neurologic: no loss of consciousness, no weakness, no numbness, no seizures, no dizziness, no headaches Psychiatric Psych: no depression, feeling safe in relationship, no alcohol abuse, Hematologic/Lymphatic Hematologic/Lymphatic no swollen glands, no bruising Physical Exam: Constitutional General Appearance: well-nourished, well-developed, appears stated age Level of Distress: comfortable Psychiatric Mental Status: alert, normal affect Orientation: oriented to time, place, and person Insight: good judgement Eyes Lids and Conjunctivae: non-injected, no xanthelasma ENMT Ears: no lesions on external ear Nose: no lesions on external nose Oropharynx: no cyanosis, no pallor Neck Neck: supple, trachea midline Carotid Arteries: bilateral normal upstroke, no bruits Jugular Veins: normal jugular venous pressure Thyroid: not enlarged Lungs Respiratory Effort: unlabored Chest Exam: normal curvature, no thoracic deformity Auscultation: clear, no wheezing, no rales, no rhonchi Cardiovascular Rate And Rhythm: regular Heart Sounds: normal S1, normal s2, no gallop Systolic Murmur: not heard Diastolic Murmur: not heard Extremities: no cyanosis, no edema, no peripheral signs of emboli Peripheral Pulses Radial Pulse: normal Abdomen Inspection and Palpation: soft, non distended, no bruit, non tender Musculoskeletal Inspection: no joint swelling Neurologic Gait: normal gait Skin Inspection and Palpation: warm and dry Nails: no clubbing Labs: @LABRESULTS@ No results found for: CHOLESTEROL TOTAL, HDL, LDL CALC, LDL DIRECT, TRIGLYCERIDES, TSH, T3 TOTAL, T4 TOTAL, THYROID PEROXIDASE AB, BNP, BNP, BNP EKG: No results found for this or any previous visit (from t (more content not included)... [facility] Evaluation + Plan note No data available for this section [facility] Evaluation note No Information [facility] Incentive [employer] Other History general Narrative - Reported Type Medical History Crohns Surgical History Appendectomy Surgical History Procedure:bowel res. 8inch small & 4 inch lg intestine;Disease:Chronns Dz Surgical History Bowel Resection Surgical History Procedure:colonoscop y;Disease:Chrons frequent colonoscopies Surgical History Procedure:appendectomy;Disease: Surgical History Right Knee Surgery x 4 Surgical History Left Knee Surgery x 2 Surgical History Procedure:repair of petella right knee;Disease:torn petella Surgical History Back Surgery Surgical History Procedure:multiple a rthroscopic on tamy knees;Disease:ACL & MCL tears Surgical History L5 -S1 Discectomy [facility] Discharge instructions No data available for this section [facility] Progress note No data available for this section [facility] Summary Purpose Family History No Family History Records FoundNo Family History Records FoundNo Family History Records FoundNo Family History Records Found No data available for this section No Family History Records Found Advance Directives No Advanced Directives Records FoundNo Advanced Directives Records FoundNo Advanced Directives Records FoundNo Advanced Directives Records FoundNo Advanced Directives Records Found Additional Source Comments INFORMATION SOURCE (unrecogn ized section and content) DATE CREATED AUTHOR 01/17/2018 [facility] DATE CREATED AUTHOR AUTHOR'S ORGANIZ ATION 02/09/2018 [facility] DATE CREATED AUTHOR AUTHOR'S ORGANIZ ATION 08/07/2021 [facility] DATE CREATED AUTHOR AUTHOR'S ORGANIZ ATION 12/26/2022 [facility] DATE CREATED AUTHOR AUTHOR'S ORGANIZ ATION 10/01/2023 [facility] REASON FOR VISIT (unrecogniz ed section and content) RefillsREFILL-COLESTIPOL Patient Care team informatio n (unrecognized section and content) Personnel Name: KELECHI GARNER Address: Address: [place] [address] FOR RECORDS PERTAINING TO PATIENTS WHO ARE OR HAVE BEEN ENROLLED IN A CHEMICAL DEPENDENCY/SUBSTANCEABUSE PROGRAM, SOME INFORMATION MAY BE OMITTED. This clinical summary was aggregated from multiple sources. Caution should be exercised in using it in the provision of clinical care. This summary normalizes information from multiple sources, and as a consequence, information in this document may materially change the coding, format and clinical context of patient data. In addition, data may be omitted in some cases. CLINICAL DECISIONS SHOULD BE BASED ON THE PRIMARY CLINICAL RECORDS. [employer] [facility]. provides no warranty or guarantee of the accuracy or completeness of information in this document.
--- NOTE | 2024-12-04 01:31 | ECG_ITS ---
[facility] Test Date: 2024-12-04 Pat Name: DANN HANNA Department: Room: - Gender: Female Respiratory Technician: : 1970 Requested By: 1030 Order Number: [id number] Reading MD: KEILA SMITH M.D. Measurements Intervals [place] Rate: 79 P: -30 [place]: 138 QRS: -28 QRSD: 88 T: 241 QT: 326 QTc: 361 Interpretive Statements 1100 Sinus rhythm [address] depression 4564 Twave abnormality, possible lateral ischemia 4664 Twave abnormality, possible inferior ischemia 7202 Moderate left axis deviation 8102 Low QRS voltage in chest leads 9150 abnormal ECG Compared to ECG 08/16/2022 12:08:28 Left-axis deviation now present Low QRS voltage now present Sinus arrhythmia no longer present Electronically Signed On 12-04-2024 18:43:08 EDT by KEILA SMITH M.D.
--- NOTE | 2024-12-04 01:31 | ED_ITS ---
HPI HPI - General Adult General Chief complaint: Abdominal Pain Stated complaint: Abdominal Pain Time Seen by Provider: 12/04/24 01:14 Source: patient Mode of arrival: walk-in Limitations: no limitations History of Present Illness HPI narrative: 54-year-old female presents for abdominal pain. This time it started about 5 PM but she had an episode a few days ago as well. No trauma or fever. She has a history of Crohn's disease and in 2005 had a bowel resection. She has also had an appendectomy in the remote past. No other abdominal surgeries. The pain is in the mid abdomen and continuous. It does not seem that she has had a bowel obstruction previously. The pain is waxing and waning and severe at times. Related Data Home Medications ?Medication ?Instructions ?Recorded ?Confirmed colestipol 1 gram tablet 3 g PO QDAY 12/04/24 5 cyanocobalamin (vitamin B-12) 500 500 mcg PO QDAY 05/2612/04/24 mcg tablet omeprazole 20 mg capsule,delayed 20 mg PO QDAY PRN hea rtburn 12/04/24 12/04/24 release Allergies Allergy/AdvReac Type Severity Reaction Status Date / Time Penicillins Allergy Rash Verified 12/04/24 01:23 Sulfa (Sulfonamide Allergy Rash Verified 12/04/24 01:23 Antibiotics) Opioid HPI Opioid Management Most Recent Opioid Data: Last Pain Scale 9 Today, 01:45 Review of Systems ROS Narrative A ten point review of systems is negative except as noted above. PFSH PFSH Social History Little interest or pleasure in doing things: not at all Feeling down, depressed, or hopeless: not at all Exam Narrative Exam Narrative: Nurses note and vital signs reviewed and patient is not hypoxic. General:The patient appears well and in no apparent distress.Patient is resting comfortably on cart. Skin:Warm, dry, no pallor noted.There is no rash noted. Head:Normocephalic, atraumatic Eye: Normal conjunctiva, no drainage Ears, Nose, Mouth, and Throat: oral mucosa is moist. Nares patent. Cardiovascular:Regular Rate and Rhythm Respiratory:Patient is in no distress, no accessory muscle use, lungs are clear to auscultation, no wheezing, rales or rhonchi Back:non-tender GI: Bowel sounds are hyperactive and she has diffuse tenderness Musculoskeletal: The patient has no evidence of calf tenderness, no pitting edema, symmetrical pulses noted bilaterally Neurological:A&O, normal speech Psychiatric:Cooperative Constitutional Vital Signs, click to edit/add: Last Vital Signs Temp 98.5 F 12/04/24 01:23 Pulse 83 12/04/24 02:53 Resp 29 H 12/04/24 02:53 BP 112/68 12/04/24 02:48 Pulse Ox 97 12/04/24 02:47 O2 Del Method Room Air 12/04/24 01:23 Course Vital Signs Vital signs: Vital Signs Temperature 98.5 F 12/04/24 01:23 Pulse Rate 86 12/04/24 01:23 Respiratory Rate 16 12/04/24 01:23 Blood Pressure 115/84 12/04/24 01:23 Pulse Oximetry 97 12/04/24 01:23 Oxygen Delivery Method Room Air 12/04/24 01:23 Temperature 98.5 F 12/04/24 01:23 Pulse Rate 83 12/04/24 02:53 Respiratory Rate 29 H 12/04/24 02:53 Blood Pressure 112/68 12/04/24 02:48 Pulse Oximetry 97 12/04/24 02:47 Oxygen Delivery Method Room Air 12/04/24 01:23 Medical Decision Making MDM Narrative Medical decision making narrative: Small bowel obstruction is identified on her CT scan. NG tube inserted as well as IV fluids. WBC 11,000 and the rest of her labs are appropriate. I spoke to general surgery at [facility] who requested the patient be transferred to a larger facility. I have spoken to Dr. Javed at [facility] and the patient is stable and agreeable for transfer and is excepted there. Findings are discussed thoroughly with the patient. Differential Diagnosis Differential Diagnosis: Small bowel obstruction, pancreatitis, diverticulitis, gastroenteritis Lab Data Lab results reviewed: Yes I reviewed the patient's lab results Labs: Lab Results 12/04/24 12/04/24 Range/Units 01:45 02:50 WBC 11.8 H (4.0-11.0) 10^3/uL RBC 4.43 (4.20-5.40) 10^6/uL Hgb 13.7 (12.0-16.0) g/dL Hct 39.7 (36.0-48.0) % MCV 89.6 (81.0-99.0) fL MCH 30.9 (26.7-34.0) pg MCHC 34.5 (29.9-35.2) g/dL RDW 12.3 (11.0-15.0) % Plt Count 251 (150-450) 10^3/uL MPV 9.8 (9.5-13.5) fL Neut % (Auto) 79.3 H (43.0-75.0) % Lymph % (Auto) 14.9 L (20.5-60.0) % Coal % (Auto) 4.9 (1.7-12.0) % Eos % (Auto) 0.3 L (0.9-7.0) % Baso % (Auto) 0.3 (0.2-2.0) % Neut # (Auto) 9.3 H (1.4-6.5) 10^3/uL Lymph # (Auto) 1.8 (1.2-3.8) 10^3/uL Coal # (Auto) 0.6 (0.3-0.8) 10^3/uL Eos # (Auto) 0.0 (0.0-0.7) 10^3/uL Baso # (Auto) 0.0 (0.0-0.1) 10^3/uL Abs Immat Gran (auto) 0.03 (0.00-0.03) 10^3/uL Imm/Tot Granulo (auto) 0.3 (0.0-0.5) % Sodium 136 (136-145) mmol/L Potassium 3.7 (3.5-5.1) mmol/L Chloride 102 (98-107) mmol/L Carbon Dioxide 23.8 (21.0-32.0) mmol/L Anion Gap 13.9 BUN 19.0 H (7.0-18.0) mg/dL Creatinine 0.91 (0.55-1.02) mg/dL Est GFR ( Amer) >60 (>=60 mL/min/1.73m^2) Est GFR (Non-Af Amer) >60 (>=60 mL/min/1.73m^2) BUN/Creatinine Ratio 20.9 Glucose 131 H (74-106) mg/dL Calcium 8.9 (8.5-10.1) mg/dL Total Bilirubin 0.4 (0.2-1.0) mg/dL Direct Bilirubin 0.1 (0.0-0.2) mg/dL AST 15 (15-37) U/L ALT 22 (14-59) U/L Alkaline Phosphatase 94 (46-116) U/L Troponin I High Sens <4.0 L (4.0-51.3) pg/mL Total Protein 6.9 (6.4-8.2) g/dL Albumin 3.0 L (3.4-5.0) g/dL Globulin 3.9 g/dL Albumin/Globulin Ratio 0.8 Amylase 44 (25-115) U/L Lipase 37.0 (16.0-77.0) U/L Urine Color Lt. yellow (YELLOW) Urine Clarity Clear (CLEAR) Urine pH 5.5 (5.0-9.0) Ur Specific [place] 1.010 (1.005-1.025) Urine Protein Negative (NEG/TRACE) mg/dL Urine Glucose (UA) Negative (NEGATIVE) mg/dL Urine Ketones Negative (NEGATIVE) mg/dL Urine Occult Blood Negative (NEGATIVE) Urine Nitrite Negative (NEGATIVE) Urine Bilirubin Negative (NEGATIVE) Urine Urobilinogen 0.2 (0.2-1.0) EU/dL Ur Leukocyte Esterase Negative (NEGATIVE) Urine RBC None seen (0-2) #/HPF Urine WBC 0-2 A (NONE SEEN) #/HPF Ur Squamous Epith Cells Few A (NONE/RARE) #/LPF Urine Crystals None seen (None Seen) #/HPF Urine Bacteria Trace A (NONE SEEN) #/HPF Urine Casts None seen (NONE SEEN) #/LPF Urine Mucus None seen (NONE SEEN) Ur Culture Indicated? No Imaging Data CT scan - abdomen: Radiologist's impression: Significant small bowel wall thickening in the right lower quadrant with surrounding inflammatory stranding consistent with active Crohn's disease; partial small bowel obstruction with dilated small bowel loops up to 3.6 cm; multiple air-fluid levels identified within nondilated small bowel loops in the abdomen and pelvis ECG Data Attestation: I personally reviewed and interpreted this ECG as follows: (EKG on my interpretation shows sinus rhythm with rate of 79) Discharge Plan Discharge Chief Complaint: Abdominal Pain Clinical Impression: Small bowel obstruction Patient Disposition: [facility] Time of Disposition Decision: 03:26 Discharge Location: [facility] Condition: Fair Mode of Transportation: EMS
[2024-12-04 01:55] LABS: Hematocrit 39.7 % (36.0-48.0); Hemoglobin 13.7 g/dL (12.0-16.0); Immature Granulocytes Abs Auto 0.03 10^3/uL (0.00-0.03); Immature Granulocytes Pct Auto 0.3 % (0.0-0.5); Lymphocytes Absolute Auto 1.8 10^3/uL (1.2-3.8); Mean Corpuscular HGB Conc 34.5 g/dL (29.9-35.2); Mean Corpuscular Hemoglobin 30.9 pg (26.7-34.0); Mean Corpuscular Volume 89.6 fL (81.0-99.0); Platelet Count 251 10^3/uL (150-450); Red Blood Count 4.43 10^6/uL (4.20-5.40); White Blood Count 11.8 10^3/uL (4.0-11.0)
[2024-12-04 02:10] LABS: Alanine Aminotransferase 22 U/L (14-59); Albumin Globulin Ratio 0.8; Albumin Level 3.0 g/dL (3.4-5.0); Alkaline Phosphatase 94 U/L (46-116); Amylase 44 U/L (25-115); Anion Gap 13.9; Aspartate Amino Transferase 15 U/L (15-37); Blood Urea Nitrogen 19.0 mg/dL (7.0-18.0); Calcium 8.9 mg/dL (8.5-10.1); Carbon Dioxide 23.8 mmol/L (21.0-32.0); Chloride 102 mmol/L (98-107); Estimated GFR (African America >60 (>=60 mL/min/1.73m^2); Estimated GFR (Non-African Ame >60 (>=60 mL/min/1.73m^2); Globulin 3.9 g/dL; Glucose 131 mg/dL (74-106); Lipase 37.0 U/L (16.0-77.0); Potassium 3.7 mmol/L (3.5-5.1); Sodium 136 mmol/L (136-145); Total Protein 6.9 g/dL (6.4-8.2)
[2024-12-04 03:00] LABS: Glucose Urine UA NEGATIVE (NEGATIVE)
[2024-12-04 03:06] LABS: Cast Seen? NONE SEEN #/LPF (NONE SEEN); Crystals Seen? None Seen #/HPF (None Seen); Urine Culture Indicated NO
[2024-12-04] MEDS: 0.9 % SODIUM CHLORIDE 1,000 ML 125 ML IV (05:41)
[2024-12-04] MEDS: phenoL 88 SPRAY/177 ML BOTTLE MM (05:41)
[2024-12-04] MEDS: MORPHINE SULFATE 4 MG/ML VIAL IV (06:15)
== END 2024-12-04 08:30 | disposition short-term general hospital (02) ==
PROVIDERS: Emergency Provider Emergency Medicine
DX: K56.600 Partial intestinal obstruction, unspecified as to cause (principal); K50.90 Crohn's disease, unspecified, without complications; Z90.49 Acquired absence of other specified parts of digestive tract
CPT/HCPCS: 36415; 74177; 80048; 80076; 81001; 82150; 83690; 84484; 85025; 93005; 96374; 99285; J2270; Q9967